=== PATIENT | male | born 1960 | race Caucasian/White ===

== ENCOUNTER 2022-08-24 17:45 | Outpatient (CLI) | payer MEDICAID, SELFPAY | END 2022-08-24 17:46 | disposition home or self-care (01) | LOC: AMB 09-06 20:28 | PROVIDERS: Visit Provider Emergency Medicine Emergency Medical Services | DX: R41.82 Altered mental status, unspecified (principal) | CPT/HCPCS: A0425; A0427 ==

== ENCOUNTER 2022-08-24 18:09 | Inpatient (IN) | payer MEDICAID, SELFPAY ==
[2022-08-24] VITALS (23 sets, daily range): BP systolic 124–173; BP diastolic 70–121; PULSE 87–138; RESP 18–28; TEMP 36.4–37.1; O2SAT 93–99; BMI 23.1
--- NOTE | 2022-08-24 18:20 | CRLHL7_ITS ---
For Patients: As a result of the Century Cures Act, medical imaging exams and procedure reports are released immediately into your electronic medical record. You may view this report before your referring provider. If you have questions, please contact your health care provider. INDICATION: Altered mental status. TECHNIQUE: Head CT without contrast. COMPARISON: None. FINDINGS: CSF spaces: Within normal limits for age. Brain parenchyma and extra-axial spaces: There are nonspecific low attenuation white matter changes consistent with chronic microvascular disease. No sign of mass, hemorrhage, or midline shift. Left posterior limb internal capsule chronic lacunar-type infarct. Skull base and calvarium: Opacification of the left frontal sinus and multiple ethmoid air cells as well as complete opacification of the left maxillary sinus. Mucosal thickening noted in the right maxillary sinus. Partial opacification of the sphenoid sinuses. Otherwise the visualized paranasal sinuses and mastoid air cells demonstrate no acute or significant findings. The visualized orbits are grossly unremarkable. No skull fractures. IMPRESSION: No acute intracranial process identified. Moderate periventricular white matter hypodensities likely related small vessel ischemic changes. Old lacunar type infarct in the left posterior limb of the internal capsule. Please note that all CT scans at this facility use dose modulation, iterative reconstruction, and/or weight-based dosing when appropriate to reduce radiation dose to as low as reasonably achievable. Dictated by Fabio Lara MD @ 08/24/2022 8:12:29 PM (Electronically Signed)
--- NOTE | 2022-08-24 18:25 | ED.GENADULT ---
HPI - General Adult General Chief complaint: Neuro Symptoms/Altered Deficit Stated complaint: Stroke Time Seen by Provider: 08/24/22 18:19 History of Present Illness HPI narrative: This 62-year-old male comes in by ambulance as he was at work and it was noted that he was leaning against a wall and then collapsed. Ambulance arrived and found him uncooperative but had normal vital signs and blood glucose level. There was suspicion that he was having a stroke. He arrives here with normal vital signs in seems slow to respond. He did have an IV placed but he pulled this out. Just before was pulled out he did receive 1 mg of Ativan prior to arrival. He is not complaining of any pain. He continues to be somewhat uncooperative when nurses are attempting to arrange vital signs and place an IV. Related Data Allergies Allergy/AdvReac Type Severity Reaction Status Date / Time No Known Drug Allergies Allergy Verified 08/24/22 19:32 Review of Systems Status of ROS: Reports: unobtainable due to mental status Narrative: Unable to obtain due to mental status. PFSH [facility] Social History Smoking Status: Current every day smoker How often do you have a drink containing alcohol: 4 or more times a week How many standard drinks containing alcohol do you have on a typical day: 10 or more How often do you have six or more drinks on one occasion: Daily or almost daily AUDIT-C Alcohol total score: 12 Exam Narrative: Exam Narrative: Constitutional: Well-developed, well-nourished, no acute distress. HEENT: Normocephalic, atraumatic. Neck: Normal range of motion. Nontender. Supple. Heart: Regular. No murmurs. Normal rate. Intact distal pulses. Lungs: Clear to auscultation. No chest discomfort. No wheezes, rhonchi, or rales. Abdomen: Normal bowel sounds. Nontender. No rebound tenderness. Genitalia: Deferred. Back: No midline tenderness. Normal range of motion. Extremities: Normal range of motion. No injury. Skin: Intact. No rash. Warm. No erythema or pallor. Neurologic: No altered sensation. No weakness. Alert. Slow to respond. He does answer questions. Tongue is midline. No facial asymmetry. Vacuum Tester Cans strength is equal bilaterally. He is able to raise each leg from the bed to touch my hand. Nursing notes and vitals signs are reviewed. Const: Vital Signs, click to edit/add: Vital Signs - 24 hr 08/24/22 18:09 08/24/22 18:40 08/24/22 18:55 Temperature 97.8 F Pulse Rate 116 H Pulse Rate [Right Pulse Oximeter] 138 H Respiratory Rate 28 H Blood Pressure 146/81 H Blood Pressure [Ri ght Upper Arm] 173/121 H Pulse Oximetry 94 95 98 Oxygen Delivery Me thod Room Air 08/24/22 18:56 08/24/22 19:01 08/24/22 19:07 Temperature Pulse Rate 115 H 117 H Pulse Rate [Right Pulse Oximeter] Respiratory Rate Blood Pressure Blood Pressure [Ri ght Upper Arm] Pulse Oximetry 97 99 97 Oxygen Delivery Me thod 08/24/22 19:30 08/24/22 19:31 Temperature Pulse Rate 111 H 106 H Pulse Rate [Right Pulse Oximeter] Respiratory Rate Blood Pressure 156/92 H Blood Pressure [Ri ght Upper Arm] Pulse Oximetry 97 97 Oxygen Delivery Me thod Course Vital Signs Vital signs: Initial Vital Signs Temperature 97.8 F 08/24/22 18:09 Temperature Source Temporal Artery Scan 08/24/22 18:09 Pulse Rate 138 H 08/24/22 18:09 Respiratory Rate 28 H 08/24/22 18:09 Blood Pressure 173/121 H 08/24/22 18:09 Blood Pressure Mean 138 H 08/24/22 18:09 Blood Pressure Position Sitting 08/24/22 18:09 Pulse Oximetry 94 08/24/22 18:09 Oxygen Delivery Method Room Air 08/24/22 18:09 Vital Signs Temperature 97.8 F 08/24/22 18:09 Pulse Rate 138 H 08/24/22 18:09 Respiratory Rate 28 H 08/24/22 18:09 Blood Pressure 173/121 H 08/24/22 18:09 Pulse Oximetry 94 08/24/22 18:09 Oxygen Delivery Method Room Air 08/24/22 18:09 Temperature 97.8 F 08/24/22 18:09 Pulse Rate 106 H 08/24/22 19:31 Respiratory Rate 28 H 08/24/22 18:09 Blood Pressure 156/92 H 08/24/22 19:31 Pulse Oximetry 97 08/24/22 19:31 Oxygen Delivery Method Room Air 08/24/22 18:09 Medical Decision Making MDM Narrative Medical decision making narrative: This patient came in by ambulance because he collapsed. There was suspicion that he might have had a stroke. He arrives here with slow responses but does show normal neurologic exam. Vital signs also are in normal range except for mild tachycardia. He is fidgety and when attempting to establish an IV he was uncooperative. Nurse's eventually had to restrain is arms to place the IV. He did then receive 1 mg of Ativan intravenously and since then has been cooperative and apparently doing better. He does not describe any pain. His and son of arrived and they indicate that he does drink alcohol heavily but they do not report any history of seizure or withdrawal symptoms. His blood alcohol level currently is 0. His lab results returned with potassium at 2.5. The patient did receive 10 mEq of potassium along with some IV fluids. CT scan of his head shows no acute intracranial findings. I did speak with the hospitalist medical education coordinator, Dr. Field, who is agreeable to bring him in overnight for further evaluation and treatment. Lab Data Labs: Lab Results 08/24/22 08/24/22 08/24/22 Range/Units 18:35 18:35 18:45 WBC 7.13 (4.50-11.00) K/uL RBC 4.05 L (4.30-5.90) m/uL Hgb 13.6 (13.5-17.5) gm/dL Hct 39.6 (37.0-53.0) % MCV 98 (80-100) fL MCH 34 (26-34) pg MCHC 34 (32-36) gm/dL RDW Coeff of Nia 12.7 (11.5-15.5) % Plt Count 109 L (140-440) K/uL Neut % (Auto) 76.9 H (42.0-72.0) % Lymph % (Auto) 16.4 L (20-44) % [place] % (Auto) 6.0 (0.0-11.0) % Eos % (Auto) 0.0 (0.0-7.0) % Baso % (Auto) 0.6 (0.0-3.0) % Neut # (Auto) 5.50 (1.7-7.0) K/uL Lymph # (Auto) 1.20 (0.90-2.90) K/uL [place] # (Auto) 0.40 (0.00-0.90) K/UL Eos # (Auto) 0.00 (0.00-0.50) K/uL Baso # (Auto) 0.04 (0.00-0.30) K/uL Sodium 130 L (135-149) mmol/L Potassium 2.5 L* (3.6-5.1) mmol/L Chloride 91 L (96-114) mmol/L Carbon Dioxide 20 (20-32) mmol/L BUN 6 L (7-30) mg/dL Creatinine 0.5 (0.5-1.5) mg/dL Estimated GFR 115 ml/min Glucose 143 H (60-115) mg/dL Calcium 8.4 (8.4-10.6) mg/dL Urine Color Yellow (Yellow) Urine Appearance Clear (Clear) Urine pH 7.0 (5.0-8.5) Ur Specific [place] 1.025 (1.000-1.030) Urine Protein 3+ A (Negative) Urine Glucose (UA) Negative (Negative) Urine Ketones 2+ A (Negative) Urine Blood 2+ A (Negative) Urine Nitrite Negative (Negative) Urine Bilirubin Negative (Negative) Urine Urobilinogen 0.2 (0.2-1.0) Ur Leukocyte Esterase Negative (Negative) Urine RBC 0-2 (0-2) Urine WBC 0-2 (0-5) Ur Squamous Epith Cells None (None-Few) Urine Bacteria None (None) Fine Granular Casts Few A (None) Urine Opiates Screen Negative (Negative) Ur Oxycodone Screen Negative (Negative) Urine Methadone Screen Negative (Negative) Ur Propoxyphene Screen Negative (Negative) Ur Barbiturates Screen Negative (Negative) U Tricyclic Antidepress Negative (Negative) Ur Phencyclidine Scrn Negative (Negative) Ur Amphetamines Screen Negative (Negative) U Methamphetamines Scrn Negative (Negative) U Benzodiazepines Scrn Negative (Negative) Urine Cocaine Screen Negative (Negative) U Marijuana (THC) Screen Negative (Negative) Ur Drug Screen Comment See Note Ethyl Alcohol < 0.01 L Cancelled (0.01-0.03) % POC Troponin I 0.03 (0.01-0.04) ng/ml Imaging Data CT scan - head: Radiologist's impression: No acute intracranial process identified. Moderate periventricular white matter hypodensities likely related small vessel ischemic changes. Discharge Plan Discharge Clinical Impression: Syncope and collapse, Acute hypokalemia Patient Disposition: Admitted As Inpatient Follow Up/Referrals: Provider,Not a Local [Primary Care Provider] -
--- NOTE | 2022-08-24 18:28 | PC.NURSE ---
pt remains disoriented and combative requiring multiple staff to keep him safe, called to room, will place restraints for safety
--- NOTE | 2022-08-24 18:40 | PC.NURSE ---
restraints applied, see assessments
[2022-08-24 18:42] LABS: Basophils Absolute Auto 0.04 K/uL (0.00-0.30); Basophils Percent Auto 0.6 % (0.0-3.0); Hematocrit 39.6 % (37.0-53.0); Hemoglobin* 13.6 gm/dL (13.5-17.5); Immature Granulocytes Abs Auto 0.01 K/uL (0.00-0.30); Immature Granulocytes Pct Auto 0.1 %; Lymphocytes Percent Auto 16.4 % (20-44); Mean Corpuscular HGB Conc 34 gm/dL (32-36); Mean Corpuscular Hemoglobin 34 pg (26-34); Mean Corpuscular Volume 98 fL (80-100); Neutrophils Percent Auto 76.9 % (42.0-72.0); Platelet Count* 109 K/uL (140-440); RDW Coefficient of Variation % 12.7 % (11.5-15.5); Red Blood Count 4.05 m/uL (4.30-5.90); White Blood Count* 7.13 K/uL (4.50-11.00)
[2022-08-24 18:46] LABS: Slide Review Reflex No
[2022-08-24 18:51] LABS: Appearance Urine Clear (Clear); Bilirubin Urine Negative (Negative); Blood Urine 2+ (Negative); Color Urine Yellow (Yellow); Glucose Urine Negative (Negative); Ketones Urine 2+ (Negative); Leukocyte Esterase Urine Negative (Negative); Nitrite Urine Negative (Negative); Protein Urine 3+ (Negative); Specific Gravity Urine 1.025 (1.000-1.030); Urobilinogen Urine 0.2 (0.2-1.0)
[2022-08-24] MEDS: 0.9 % SODIUM CHLORIDE 500 ML 500 ML IV (18:53)
[2022-08-24 18:55] LABS: Chloride* 91 mmol/L (96-114); Sodium* 130 mmol/L (135-149)
[2022-08-24 18:57] LABS: Creatinine* 0.5 mg/dL (0.5-1.5); Estimated Glomerular Filt Rate 115 ml/min
[2022-08-24 18:58] LABS: Amphetamine Screen Urine Negative (Negative); Barbiturate Screen Urine Negative (Negative); Benzodiazepines Screen Urine Negative (Negative); Cannabinoid Screen Urine Negative (Negative); Cocaine Screen Urine Negative (Negative); Methadone Screen Urine Negative (Negative); Methamphetamines Screen Urine Negative (Negative); Opiate Screen Urine Negative (Negative); Oxycodone Screen Urine Negative (Negative); Phencyclidine Screen Urine Negative (Negative); Tricyclic Antidepressant Urine Negative (Negative)
[2022-08-24 18:58] LABS: Blood Urea Nitrogen* 6 mg/dL (7-30); Calcium* 8.4 mg/dL (8.4-10.6); Carbon Dioxide* 20 mmol/L (20-32); Glucose* 143 mg/dL (60-115)
[2022-08-24 19:00] LABS: Fine Granular Casts Urine Few; RBC Urine 0-2 (0-2); WBC Urine 0-2 (0-5)
[2022-08-24 19:01] LABS: Ethanol* < 0.01 % (0.01-0.03); Potassium* 2.5 mmol/L (3.6-5.1)
--- NOTE | 2022-08-24 19:05 | ED.NURSE ---
Critical Potassium lab received and handed to MD: 2.5
[2022-08-24 19:09] LABS: Troponin, Point-of-Care* 0.03 ng/ml (0.01-0.04)
[2022-08-24] MEDS: LORazepam 2 MG/ML inj 1 MG IM (19:09)
[2022-08-24] MEDS: POTASSIUM CHLORIDE 10 MEQ/100 ML PIGGYBACK 100 MEQ IVPB ×2 (19:26→23:19)
--- NOTE | 2022-08-24 19:40 | PC.NURSE ---
restraints removed 1901, pt becoming more directable, CT called to attempt exam
--- NOTE | 2022-08-24 19:55 | ED.NURSE ---
Ct head completed. Returned to room. and son at bedside. Patient able to respond to questions and inconstantly follows commands. Needs frequent redirection.
--- NOTE | 2022-08-24 20:03 | ED.NURSE ---
MD in to discuss plan of care with patient and .
--- NOTE | 2022-08-24 20:31 | ED.NURSE ---
Patient incontinent of urine. Removed jeans and underwear. Placed in a brief. Cleansed abrasions/wounds on right arm. Bacitracin and bandages applied. Patient accepted for admission to med surg.
--- NOTE | 2022-08-24 20:54 | ED.NURSE ---
Hospitalist in to see patient at this time. Patient is resting on the cot.
--- NOTE | 2022-08-24 21:03 | ED.NURSE ---
Report to [facility] on Med Surg. To CCU 1 once hospitalist complete with assessment.
--- NOTE | 2022-08-24 22:12 | P.IMHP_ITS ---
Hospitalist- H&P: HPI History of Present Illness Time Seen by Provider: 20:30 Date Seen: 08/24/22 Chief complaint: Collapsed at work Narrative: [place] is a 62 year old man who reportedly was in his usual state of health until he collapsed this afternoon while at work. Most information that I relate below is obtained by speaking with the patient's and their son, both of whom are present when I see the patient in the emergency department this evening. The patient has intentionally avoided interaction with medical personnel over the years. His physician retired early on during the COVID pandemic roughly 3 years ago. Before his physician retired he rarely ever saw his physician. He has not reestablished relationship with another physician since then. His indicates that the patient suffered a stroke about 10 years ago and for a while was on statin medication, aspirin, and possibly another medicine. When the patient decided to no longer seek medical attention after his physician retired, he quit taking all of his medications. He has not been taking any prescription medications since then. Family does note that he regularly takes [id number] ibuprofen, 4 tabs at a time, 3-4 times daily. 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 Reportedly he did not strike his head. EMS was summoned. According to the EMS report he was uncooperative with the EMS staff. They thought they saw some facial drooping. Found to have normal vital signs and glucose. They placed an IV and attempted to give 1 mg of lorazepam. Patient pulled out the IV possibly right after the lorazepam was given. On arrival here to the emergency department there is no obvious focal motor neurologic deficits. Still remains somewhat uncooperative with the nursing staff here in the hospital. Subsequently fell asleep. I arouse the patient when I assessed him in the emergency department. He has no recall of collapsing while at work. He does not recall any of those events. He does not recall arriving here in the hospital. He denies any pain. Ordinarily drinks alcohol daily. His son estimates that he drinks a half bottle daily of either vodka or dionte. Usually drinks in the evening and night. On weekends he also drinks during the day. As far as the patient's family is aware he has not had alcohol withdrawal symptoms. He has not had alcohol withdrawal seizures or delirium tremens. He did not drink much alcohol this past Wednesday. As far as the family knows he consumed no alcohol whatsoever today. Review of Systems Status of ROS: Reports: 10 or more systems reviewed and unremarkable except as noted in History and below Narrative: Patient tells me presently that he has no new injuries that he is aware of. Denies headache, neck ache, painful extremities or joints, chest or back pain, abdominal pain, pelvic pain. Denies lightheadedness or near-syncope at this time. Denies chest heaviness, pressure, tightness, or pain. Denies nausea or vomiting. Denies palpitations or chest fluttering. Denies cough, shortness of breath, paroxysmal nocturnal dyspnea, orthopnea. Denies recent fevers, rigors, diaphoresis. Denies recent diarrhea or constipation. Denies dysuria, urgency, frequency, hematuria. Denies weight gain or weight loss. Denies edema. Denies claudication. Acknowledges chronic longstanding difficulty with walking. A number of years ago he had a hip pinned. Reportedly it was recommended that he have a total hip arthroplasty at that time but he declined the arthroplasty and excepted the hip pending. Also he reportedly has a bad knee. Has had difficulty walking for number of years. Does take [id number] ibuprofen, 4 tabs 3-4 times daily. Again he does drink alcohol regularly, about a half bottle of vodka or dionte daily. On weekends he might drink a little bit more. This is not new. [facility] Medical History (Updated 08/24/22 @ 23:00 by Adonay Field MD) Tobacco dependence ?F17.200 - Nicotine dependence, unspecified, uncomplicated (ICD-10) Chronic knee pain ?M25.569 - Pain in unspecified knee (ICD-10) ?G89.29 - Other chronic pain (ICD-10) Chronic hip pain ?M25.559 - Pain in unspecified hip (ICD-10) ?G89.29 - Other chronic pain (ICD-10) Unstable gait ?R26.81 - Unsteadiness on feet (ICD-10) History of stroke ?Z86.73 - Personal history of transient ischemic attack (TIA), and cerebral infarction without residual deficits (ICD-10) Alcohol abuse ?F10.10 - Alcohol abuse, uncomplicated (ICD-10) Alcoholism ?F10.20 - Alcohol dependence, uncomplicated (ICD-10) Surgical History (Updated 08/24/22 @ 22:37 by Adonay Field MD) Status post hip surgery ?Z98.890 - Other specified postprocedural states (ICD-10) Social History Smoking Status: Current every day smoker How often do you have a drink containing alcohol: 4 or more times a week How many standard drinks containing alcohol do you have on a typical day: 10 or more How often do you have six or more drinks on one occasion: Daily or almost daily AUDIT-C Alcohol total score: 12 Meds Home Medications and Allergies Home Medication Comments: Vfdh-wwm-[id number] ibuprofen 4 tabs 3-4 times daily Allergies Allergy/AdvReac Type Severity Reaction Status Date / Time No Known Drug Allergies Allergy Verified 08/24/22 19:32 Exam Narrative: Exam Narrative: When I 1st meet him in the emergency department he is sound asleep. Appears thin and cachectic. Peripheral muscle wasting of upper and lower extremities. Skin is remarkable for subcutaneous atrophy with ecchymosis at m ultiple stages of evolution particularly in the extremities. After speaking with his and son who are not sitting next to him for good 1/2 hour I begin speaking with the patient and he easily arouses. When awake it is apparent that he has amnesia of the events that occurred culminating in his arrival here at the hospital. He does not recall arriving at the hospital or being transported to the hospital. Does initially not oriented to situation. After explaining to him the situation he seems to understand. Other than the amnesia, he is oriented to self, not oriented to place, not oriented to time. We do orient him to place and time and seemingly he comprehends. When awake he is picking at blood pressure cuff and finger oximetry probe. Earlier he pulled out his IV. No obvious focal motor neurologic deficits including the face. No icterus or conjunctival injection. Tympanic membranes are normal as are bilateral external auditory canals. Midline nasal septum with normal nasal mucosa. Dry buccal mucosa. Dentition fair repair. Supple neck. Midline trachea. No JVD, hepatojugular reflux, or carotid bruits. Lungs are clear to auscultation without wheezing, rhonchi, or rales. Chest wall excursions are full. No CVA tenderness. No tenderness to palpation over the spine. Heart tones with regular rhythm, normal S1-S2, without murmur, gallop, or rub. PMI is not laterally displaced. Abdomen with active bowel sounds, soft, nontender. Moderately enlarged liver. No rebound or guarding. Extremities without edema. Const: Vital Signs, click to edit/add: Vital Signs - 24 hr 08/24/22 18:09 08/24/22 18:40 08/24/22 18:55 Temperature 97.8 F Pulse Rate 116 H Pulse Rate [Right Pulse Oximeter] 138 H Respiratory Rate 28 H Blood Pressure 146/81 H Blood Pressure [Ri ght Upper Arm] 173/121 H Pulse Oximetry 94 95 98 Oxygen Delivery Me thod Room Air 08/24/22 18:56 08/24/22 19:01 08/24/22 19:07 Temperature Pulse Rate 115 H 117 H Pulse Rate [Right Pulse Oximeter] Respiratory Rate Blood Pressure Blood Pressure [Ri ght Upper Arm] Pulse Oximetry 97 99 97 Oxygen Delivery Me thod 08/24/22 19:30 08/24/22 19:31 08/24/22 19:32 Temperature Pulse Rate 111 H 106 H 104 H Pulse Rate [Right Pulse Oximeter] Respiratory Rate Blood Pressure 156/92 H Blood Pressure [Ri ght Upper Arm] Pulse Oximetry 97 97 98 Oxygen Delivery Me thod 08/24/22 20:00 08/24/22 20:01 08/24/22 20:02 Temperature Pulse Rate 102 H 99 100 Pulse Rate [Right Pulse Oximeter] Respiratory Rate Blood Pressure 153/91 H Blood Pressure [Ri ght Upper Arm] Pulse Oximetry 98 97 97 Oxygen Delivery Me thod Room Air 08/24/22 20:30 08/24/22 20:31 08/24/22 20:32 Temperature Pulse Rate 108 H 108 H 107 H Pulse Rate [Right Pulse Oximeter] Respiratory Rate Blood Pressure 148/95 H Blood Pressure [Ri ght Upper Arm] Pulse Oximetry 97 97 97 Oxygen Delivery Me thod 08/24/22 21:00 08/24/22 21:02 Temperature Pulse Rate 87 105 H Pulse Rate [Right Pulse Oximeter] Respiratory Rate Blood Pressure 133/79 Blood Pressure [Ri ght Upper Arm] Pulse Oximetry 98 98 Oxygen Delivery Me thod Documenting provider has reviewed patient's vital signs: yes Hospitalist - H&P: Result Labs Labs: Short CBC 08/24/22 Range/Units 18:35 WBC 7.13 (4.50-11.00) K/uL Hgb 13.6 (13.5-17.5) gm/dL Hct 39.6 (37.0-53.0) % Plt Count 109 L (140-440) K/uL BMP 08/24/22 18:35 Sodium 130 L Potassium 2.5 L* Chloride 91 L Carbon Dioxide 20 BUN 6 L Creatinine 0.5 Glucose 143 H Calcium 8.4 Urine 08/24/22 Range/Units 18:45 Urine Color Yellow (Yellow) Urine Appearance Clear (Clear) Urine pH 7.0 (5.0-8.5) Ur Specific [place] 1.025 (1.000-1.030) Urine Protein 3+ A (Negative) Urine Glucose (UA) Negative (Negative) ECG Attestation: I personally reviewed and interpreted this ECG as follows: Pacemaker model: Sinus tachycardia. Imaging CT scan - head: Attestation: I have reviewed the pertinent imaging results. Radiologist's impression: IMPRESSION: No acute intracranial process identified. Moderate periventricular white matter hypodensities likely related small vessel ischemic changes. Old lacunar type infarct in the left posterior limb of the internal capsule. Assessment and Plan Assessment and plan (1) Syncope and collapse: Problem comment: Likely patient did not have syncope. Likely patient had a seizure episode with post seizure amnesia. Whether this is related to his prior stroke or related to his alcohol use and withdrawal is not clear at this time. This is a 1st possible seizure. Status: Acute Assessment and Plan: A. Admit to hospital. B. Telemetry, serial ECG and troponins. C. Consider EEG and neurology consultation in outpatient setting. D. Physical therapy and occupational therapy consultation. (2) Acute hypokalemia: Problem comment: His nutritional intake is poor at best. Whether this is acute or chronic is unclear. Highly suspicious of complication from his alcohol consumption. Status: Acute Assessment and Plan: A. IV and oral supplementation. Monitor level. B. Check magnesium level. Supplement magnesium if warranted. C. Nutritional consultation. (3) Hyponatremia: Problem comment: Mild. In totality of his presentation this is highly suspicious of being a complication of his alcohol use. Status: Acute Assessment and Plan: A. Fluid restriction. B. Normal saline IV fluid bolus. (4) Thrombocytopenia: Problem comment: Likely a complication of his chronic alcohol use. Status: Acute Assessment and Plan: A. Tract. (5) Proteinuria: Problem comment: Suspect this is related to hypertension. Status: Acute Assessment and Plan: A. Will need outpatient follow-up. (6) History of stroke: Problem comment: CT scan of the head 08/24/2022 demonstrated: No acute intracranial process identified. Moderate periventricular white matter hypodensities likely related small vessel ischemic changes. Old lacunar type infarct in the left posterior limb of the internal capsule. Status: Acute Assessment and Plan: A. Consider re-initiation of statin. (7) Tobacco dependence: Status: Acute Assessment and Plan: A. For now will make available Nicotrol inhaler as needed. (8) Unstable gait: Problem comment: Chronic. Status: Acute Assessment and Plan: A. Physical therapy and occupational therapy consultations. (9) Alcoholism: Problem comment: I suspect he has complications far more than what we have been able to ascertain thus far. Status: Acute Assessment and Plan: A. CIWA driven alcohol withdrawal protocol. B. Check INR, liver function studies, and will also obtain ultrasound of abdomen. Plan 1. Reviewed impression and above stated plans with patient, , and son. 2. is primary contact in the event patient not able to speak on his own behalf, cell phone [phone]. 3. For now patient has full resuscitation in event of cardiopulmonary demise. 4. Answered patient's and 's and son's questions to their satisfaction. 5. They agreeable to above stated plans and recommendations. did not think she could take her home in his current condition and situation. 6. Venous thromboembolism prophylaxis through mechanical means. 7. Occupational therapy consultation, including for cognitive assessment.
[2022-08-24 22:20] LABS: Lactate* 3.1 mmol/L (0.5-1.9)
[2022-08-24 22:48] LABS: Aspartate Amino Transferase* 148 U/L (12-35); Bilirubin Direct* 0.2 mg/dL (0.0-0.5); Bilirubin Total* 2.6 mg/dL (0.1-1.5); Total Protein* 7.7 g/dL (6.0-8.3)
[2022-08-24 22:49] LABS: Alanine Aminotransferase* 49 U/L (4-50); Alkaline Phosphatase* 96 U/L (40-150)
[2022-08-24 23:00] LABS: Troponin I* 0.01 ng/mL (0.01-0.04)
[2022-08-24 23:04] LABS: Magnesium* 0.9 mg/dL (1.5-2.6)
[2022-08-24 23:20] LABS: INR 0.97 (0.91-1.10); Prothrombin Time 13.4 Seconds
[2022-08-24] MEDS: ENOXAPARIN 30 MG/0.3ML INJ SUBCUT (23:22)
[2022-08-24] MEDS: THIAMINE 100 MG TABLET PO (23:23)
[2022-08-24] MEDS: POTASSIUM CHLORIDE 10 MEQ CAPSULE ER 40 MEQ PO (23:23)
[2022-08-24 23:38] LABS: Vitamin B12* 516 pg/mL (243-894)
[2022-08-24 23:40] LABS: Thyroid Stimulating Hormone* 0.546 uIU/mL (0.270-4.20)
[2022-08-25] VITALS (13 sets, daily range): BP systolic 131–142; BP diastolic 79–91; PULSE 78–95; RESP 14–24; TEMP 36.4–37.2; O2SAT 94–98
[2022-08-25 00:19] LABS: Creatine Kinase* 282 U/L (54-186)
[2022-08-25] MEDS: MAGNESIUM IV 2 GM/50 ML PIGGYBACK IVPB (00:38)
[2022-08-25] MEDS: POTASSIUM CHLORIDE 10 MEQ/100 ML PIGGYBACK 100 MEQ IVPB ×2 (00:43→02:06)
[2022-08-25] MEDS: ATORVASTATIN 10 MG TABLET 20 MG PO (00:44)
[2022-08-25] MEDS: CLOPIDOGREL 75 MG TABLET PO ×2 (00:44→09:48)
[2022-08-25] MEDS: ASPIRIN 81 MG TAB.CHEW 162 MG PO (01:02)
[2022-08-25] MEDS: LORazepam 2 MG/ML inj IVP ×2 (04:12→04:55)
[2022-08-25] MEDS: ACETAMINOPHEN 325 MG TABLET 650 MG PO (04:53)
--- NOTE | 2022-08-25 05:39 | PM.IMPN1 ---
Progress Note: A&P Assessment and plan (1) Alcoholism: Status: Acute Plan E hospitalist collaboration. Nursing noted patient combative, crawling out of bed and had received Ativan in the ED at 1900 Did not require further Ativan until 4 AM and then an additional 2 mg rquired at 445 and again at 545. Vitals remained stable with heart rate 86, respiratory rate 24, blood pressure 141/86 and O2 sat 94% on room air. Patient has since now fallen asleep, and will continue Ativan per protocol, if is not responding no to Ativan and becomes combative again we will plan phenobarbital or consideration Precedex drip. Subjective Date Seen: 08/25/22 Exam Const: Vital Signs, click to edit/add: Vital Signs - 24 hr 08/24/22 18:09 08/24/22 18:40 08/24/22 18:55 Temperature 97.8 F Pulse Rate 116 H Pulse Rate [Pulse Oximeter] Pulse Rate [Right Pulse Oximeter] 138 H Respiratory Rate 28 H Blood Pressure 146/81 H Blood Pressure [Ri ght Arm] Blood Pressure [Ri ght Upper Arm] 173/121 H Pulse Oximetry 94 95 98 Oxygen Delivery Me thod Room Air 08/24/22 18:56 08/24/22 19:01 08/24/22 19:07 Temperature Pulse Rate 115 H 117 H Pulse Rate [Pulse Oximeter] Pulse Rate [Right Pulse Oximeter] Respiratory Rate Blood Pressure Blood Pressure [Ri ght Arm] Blood Pressure [Ri ght Upper Arm] Pulse Oximetry 97 99 97 Oxygen Delivery Me thod 08/24/22 19:30 08/24/22 19:31 08/24/22 19:32 Temperature Pulse Rate 111 H 106 H 104 H Pulse Rate [Pulse Oximeter] Pulse Rate [Right Pulse Oximeter] Respiratory Rate Blood Pressure 156/92 H Blood Pressure [Ri ght Arm] Blood Pressure [Ri ght Upper Arm] Pulse Oximetry 97 97 98 Oxygen Delivery Me thod 08/24/22 20:00 08/24/22 20:01 08/24/22 20:02 Temperature Pulse Rate 102 H 99 100 Pulse Rate [Pulse Oximeter] Pulse Rate [Right Pulse Oximeter] Respiratory Rate Blood Pressure 153/91 H Blood Pressure [Ri ght Arm] Blood Pressure [Ri ght Upper Arm] Pulse Oximetry 98 97 97 Oxygen Delivery Me thod Room Air 08/24/22 20:30 08/24/22 20:31 08/24/22 20:32 Temperature Pulse Rate 108 H 108 H 107 H Pulse Rate [Pulse Oximeter] Pulse Rate [Right Pulse Oximeter] Respiratory Rate Blood Pressure 148/95 H Blood Pressure [Ri ght Arm] Blood Pressure [Ri ght Upper Arm] Pulse Oximetry 97 97 97 Oxygen Delivery Me thod 08/24/22 21:00 08/24/22 21:02 08/24/22 21:28 Temperature 98.8 F Pulse Rate 87 105 H Pulse Rate [Pulse Oximeter] Pulse Rate [Right Pulse Oximeter] Respiratory Rate 18 Blood Pressure 133/79 Blood Pressure [Ri ght Arm] Blood Pressure [Ri ght Upper Arm] Pulse Oximetry 98 98 95 Oxygen Delivery Me thod Room Air 08/24/22 22:54 08/24/22 23:00 08/24/22 23:40 Temperature 98.8 F 98.7 F Pulse Rate Pulse Rate [Pulse Oximeter] 103 H 99 Pulse Rate [Right Pulse Oximeter] Respiratory Rate 18 18 Blood Pressure Blood Pressure [Ri ght Arm] 124/70 137/76 Blood Pressure [Ri ght Upper Arm] Pulse Oximetry 94 95 [facility] 08/25/22 03:34 08/25/22 03:45 08/25/22 04:45 Temperature 97.6 F Pulse Rate Pulse Rate [Pulse Oximeter] 94 94 Pulse Rate [Right Pulse Oximeter] Respiratory Rate 18 20 24 Blood Pressure Blood Pressure [Ri ght Arm] 141/86 H Blood Pressure [Ri ght Upper Arm] Pulse Oximetry 98 95 94 [facility] 08/25/22 05:00 Temperature Pulse Rate Pulse Rate [Pulse Oximeter] 88 Pulse Rate [Right Pulse Oximeter] Respiratory Rate 18 Blood Pressure Blood Pressure [Ri ght Arm] 142/79 H Blood Pressure [Ri ght Upper Arm] Pulse Oximetry 95 Oxygen Delivery Me thod Labs Labs: Laboratory Results - last 24 hr 08/24/22 08/24/22 08/24/22 18:35 18:35 18:45 WBC 7.13 RBC 4.05 L Hgb 13.6 Hct 39.6 MCV 98 MCH 34 MCHC 34 RDW Coeff of Nia 12.7 Plt Count 109 L Neut % (Auto) 76.9 H Lymph % (Auto) 16.4 L [place] % (Auto) 6.0 Eos % (Auto) 0.0 Baso % (Auto) 0.6 Neut # (Auto) 5.50 Lymph # (Auto) 1.20 [place] # (Auto) 0.40 Eos # (Auto) 0.00 Baso # (Auto) 0.04 INR Sodium 130 L Potassium 2.5 L* Chloride 91 L Carbon Dioxide 20 BUN 6 L Creatinine 0.5 Estimated GFR 115 Glucose 143 H Lactate Calcium 8.4 Magnesium Total Bilirubin Direct Bilirubin AST ALT Alkaline Phosphatase Total Creatine Kinase 282 H Troponin I 0.01 Total Protein Albumin Vitamin B12 516 TSH Urine Color Yellow Urine Appearance Clear Urine pH 7.0 Ur Specific [place] 1.025 Urine Protein 3+ A Urine Glucose (UA) Negative Urine Ketones 2+ A Urine Blood 2+ A Urine Nitrite Negative Urine Bilirubin Negative Urine Urobilinogen 0.2 Ur Leukocyte Esterase Negative Urine RBC 0-2 Urine WBC 0-2 Ur Squamous Epith Cells None Urine Bacteria None Fine Granular Casts Few A Urine Opiates Screen Negative Ur Oxycodone Screen Negative Urine Methadone Screen Negative Ur Propoxyphene Screen Negative Ur Barbiturates Screen Negative U Tricyclic Antidepress Negative Ur Phencyclidine Scrn Negative Ur Amphetamines Screen Negative U Methamphetamines Scrn Negative U Benzodiazepines Scrn Negative Urine Cocaine Screen Negative U Marijuana (THC) Screen Negative Ur Drug Screen Comment See Note Ethyl Alcohol < 0.01 L Cancelled Lab Acknowledgement POC Troponin I 0.03 08/24/22 08/24/22 08/24/22 21:41 22:06 22:06 WBC RBC Hgb Hct MCV MCH MCHC RDW Coeff of Nia Plt Count Neut % (Auto) Lymph % (Auto) [place] % (Auto) Eos % (Auto) Baso % (Auto) Neut # (Auto) Lymph # (Auto) [place] # (Auto) Eos # (Auto) Baso # (Auto) INR 0.97 Sodium Potassium Chloride Carbon Dioxide BUN Creatinine Estimated GFR Glucose Lactate 3.1 H Calcium Magnesium 0.9 L* Cancelled Total Bilirubin 2.6 H Direct Bilirubin AST ALT Alkaline Phosphatase Total Creatine Kinase Troponin I Total Protein Albumin Vitamin B12 TSH Urine Color Urine Appearance Urine pH Ur Specific [place] Urine Protein Urine Glucose (UA) Urine Ketones Urine Blood Urine Nitrite Urine Bilirubin Urine Urobilinogen Ur Leukocyte Esterase Urine RBC Urine WBC Ur Squamous Epith Cells Urine Bacteria Fine Granular Casts Urine Opiates Screen Ur Oxycodone Screen Urine Methadone Screen Ur Propoxyphene Screen Ur Barbiturates Screen U Tricyclic Antidepress Ur Phencyclidine Scrn Ur Amphetamines Screen U Methamphetamines Scrn U Benzodiazepines Scrn Urine Cocaine Screen U Marijuana (THC) Screen Ur Drug Screen Comment Ethyl Alcohol Lab Acknowledgement Test Added POC Troponin I 08/24/22 08/24/22 08/24/22 22:06 22:06 22:06 WBC RBC Hgb Hct MCV MCH MCHC RDW Coeff of Nia Plt Count Neut % (Auto) Lymph % (Auto) [place] % (Auto) Eos % (Auto) Baso % (Auto) Neut # (Auto) Lymph # (Auto) [place] # (Auto) Eos # (Auto) Baso # (Auto) INR Sodium Potassium Chloride Carbon Dioxide BUN Creatinine Estimated GFR Glucose Lactate Calcium Magnesium Total Bilirubin Cancelled Direct Bilirubin 0.2 Cancelled AST 148 H Cancelled ALT 49 Alkaline Phosphatase Total Creatine Kinase Troponin I Total Protein Albumin Vitamin B12 TSH Urine Color Urine Appearance Urine pH Ur Specific [place] Urine Protein Urine Glucose (UA) Urine Ketones Urine Blood Urine Nitrite Urine Bilirubin Urine Urobilinogen Ur Leukocyte Esterase Urine RBC Urine WBC Ur Squamous Epith Cells Urine Bacteria Fine Granular Casts Urine Opiates Screen Ur Oxycodone Screen Urine Methadone Screen Ur Propoxyphene Screen Ur Barbiturates Screen U Tricyclic Antidepress Ur Phencyclidine Scrn Ur Amphetamines Screen U Methamphetamines Scrn U Benzodiazepines Scrn Urine Cocaine Screen U Marijuana (THC) Screen Ur Drug Screen Comment Ethyl Alcohol Lab Acknowledgement POC Troponin I 08/24/22 08/24/22 08/24/22 22:06 22:06 22:06 WBC RBC Hgb Hct MCV MCH MCHC RDW Coeff of Nia Plt Count Neut % (Auto) Lymph % (Auto) [place] % (Auto) Eos % (Auto) Baso % (Auto) Neut # (Auto) Lymph # (Auto) [place] # (Auto) Eos # (Auto) Baso # (Auto) INR Sodium Potassium Chloride Carbon Dioxide BUN Creatinine Estimated GFR Glucose Lactate Calcium Magnesium Total Bilirubin Direct Bilirubin AST ALT Cancelled Alkaline Phosphatase 96 Cancelled Total Creatine Kinase Troponin I 0.10 H* Cancelled Total Protein 7.7 Albumin Vitamin B12 TSH Urine Color Urine Appearance Urine pH Ur Specific [place] Urine Protein Urine Glucose (UA) Urine Ketones Urine Blood Urine Nitrite Urine Bilirubin Urine Urobilinogen Ur Leukocyte Esterase Urine RBC Urine WBC Ur Squamous Epith Cells Urine Bacteria Fine Granular Casts Urine Opiates Screen Ur Oxycodone Screen Urine Methadone Screen Ur Propoxyphene Screen Ur Barbiturates Screen U Tricyclic Antidepress Ur Phencyclidine Scrn Ur Amphetamines Screen U Methamphetamines Scrn U Benzodiazepines Scrn Urine Cocaine Screen U Marijuana (THC) Screen Ur Drug Screen Comment Ethyl Alcohol Lab Acknowledgement POC Troponin I 08/24/22 08/24/22 08/24/22 22:06 22:06 23:17 WBC RBC Hgb Hct MCV MCH MCHC RDW Coeff of Nia Plt Count Neut % (Auto) Lymph % (Auto) [place] % (Auto) Eos % (Auto) Baso % (Auto) Neut # (Auto) Lymph # (Auto) [place] # (Auto) Eos # (Auto) Baso # (Auto) INR Sodium Potassium Chloride Carbon Dioxide BUN Creatinine Estimated GFR Glucose Lactate Calcium Magnesium Total Bilirubin Direct Bilirubin AST ALT Alkaline Phosphatase Total Creatine Kinase Troponin I Total Protein Cancelled Albumin 4.0 Cancelled Vitamin B12 TSH 0.546 Urine Color Urine Appearance Urine pH Ur Specific [place] Urine Protein Urine Glucose (UA) Urine Ketones Urine Blood Urine Nitrite Urine Bilirubin Urine Urobilinogen Ur Leukocyte Esterase Urine RBC Urine WBC Ur Squamous Epith Cells Urine Bacteria Fine Granular Casts Urine Opiates Screen Ur Oxycodone Screen Urine Methadone Screen Ur Propoxyphene Screen Ur Barbiturates Screen U Tricyclic Antidepress Ur Phencyclidine Scrn Ur Amphetamines Screen U Methamphetamines Scrn U Benzodiazepines Scrn Urine Cocaine Screen U Marijuana (THC) Screen Ur Drug Screen Comment Ethyl Alcohol Lab Acknowledgement Test Added POC Troponin I 08/24/22 23:40 WBC RBC Hgb Hct MCV MCH MCHC RDW Coeff of Nia Plt Count Neut % (Auto) Lymph % (Auto) [place] % (Auto) Eos % (Auto) Baso % (Auto) Neut # (Auto) Lymph # (Auto) [place] # (Auto) Eos # (Auto) Baso # (Auto) INR Sodium Potassium Chloride Carbon Dioxide BUN Creatinine Estimated GFR Glucose Lactate Calcium Magnesium Total Bilirubin Direct Bilirubin AST ALT Alkaline Phosphatase Total Creatine Kinase Troponin I Total Protein Albumin Vitamin B12 TSH Urine Color Urine Appearance Urine pH Ur Specific [place] Urine Protein Urine Glucose (UA) Urine Ketones Urine Blood Urine Nitrite Urine Bilirubin Urine Urobilinogen Ur Leukocyte Esterase Urine RBC Urine WBC Ur Squamous Epith Cells Urine Bacteria Fine Granular Casts Urine Opiates Screen Ur Oxycodone Screen Urine Methadone Screen Ur Propoxyphene Screen Ur Barbiturates Screen U Tricyclic Antidepress Ur Phencyclidine Scrn Ur Amphetamines Screen U Methamphetamines Scrn U Benzodiazepines Scrn Urine Cocaine Screen U Marijuana (THC) Screen Ur Drug Screen Comment Ethyl Alcohol Lab Acknowledgement Test Added POC Troponin I
[2022-08-25 07:05] LABS: Hematocrit 37.1 % (37.0-53.0); Hemoglobin* 12.9 gm/dL (13.5-17.5); Lactate* 1.1 mmol/L (0.5-1.9); Mean Corpuscular HGB Conc 35 gm/dL (32-36); Mean Corpuscular Hemoglobin 34 pg (26-34); Mean Corpuscular Volume 98 fL (80-100); Platelet Count* 109 K/uL (140-440)
[2022-08-25 07:08] LABS: Slide Review Reflex No
[2022-08-25 07:48] LABS: Chloride* 95 mmol/L (96-114); Potassium* 3.3 mmol/L (3.6-5.1); Sodium* 128 mmol/L (135-149)
[2022-08-25 07:50] LABS: Carbon Dioxide* 26 mmol/L (20-32); Creatine Kinase* 603 U/L (54-186); Creatinine* 0.5 mg/dL (0.5-1.5); Est. Creatinine Clearance* 78.07; Estimated Glomerular Filt Rate 115 ml/min; Lipase* 96 U/L (23-300)
[2022-08-25 07:51] LABS: Blood Urea Nitrogen* 8 mg/dL (7-30); Calcium* 7.9 mg/dL (8.4-10.6); Glucose* 91 mg/dL (60-115); Magnesium* 1.6 mg/dL (1.5-2.6); Phosphorus* 2.7 mg/dL (2.5-4.5)
[2022-08-25] MEDS: OMEPRAZOLE 20 MG CAPSULE DR 40 MG PO (08:03)
[2022-08-25 08:04] LABS: Troponin I* 0.27 ng/mL (0.01-0.04)
--- NOTE | 2022-08-25 08:11 | PC.NURSE ---
Shift Summary? CCU 1 G.D. 62 Collapse at work, EtOH use? Pt arrived fatigued and combative. No longer on restraints. No aggression but very resistive to cares and exam. Pulling off o2 monitor continuously. Pt only slept for about an hour. Dozing for 5-10 minutes then waking anxious and restless. According to family drinks 1L q3 days. CIWAs 3-11 overnight. Given Ativan 2mg x2. Paged lashae for pheno but it was added once shift ended by hospitalist. Some tachycardia and elevated BPs. Respirations 16-24. On room air sating well. Labile temperature, pulling covers off and on. No perspiration. No tremors. Did not appear to have any visual or auditory disturbances. No nausea/vomiting. Had headache and ?hurt all over?, given Tylenol.?Voiding in urinal with some urgency incontinence in brief. Has not been OOB. 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 Oriented to self but not to place or situation. at bedside and son shweta was here. K replaced IV and PO. Mg replaced. IV to R LAC.?Somewhat [place]. Healing abrasion to top of L foot. ANA stockings in place. Tele in place with some accelerated junctional rhythm. EKG done with possible NSTEMI
[2022-08-25] MEDS: PHENobarbitaL 260 MG in 0.9 % SODIUM CHLORIDE 100 ml 100 ML 208 MG IVPB (08:19)
[2022-08-25] MEDS: 0.9 % SODIUM CHLORIDE 250 ml IV (08:20)
[2022-08-25] MEDS: IBUPROFEN 400 MG TABLET PO ×3 (08:21→17:48)
--- NOTE | 2022-08-25 09:12 | NUTR.NU ---
RDN with MD consult for cachexia and alcoholism. Patient not appropriate to visit at this time per IDT meeting. RDN will visit with patient as appropriate at a later date.
--- NOTE | 2022-08-25 09:41 | REH.PT ---
evaluation on hold d/t withdrawal
[2022-08-25] MEDS: METOPROLOL TARTRATE 25 MG TABLET 12.5 MG PO (09:48)
[2022-08-25] MEDS: ASPIRIN 81 MG TABLET EC PO (09:48)
[2022-08-25] MEDS: LORazepam 1 MG TABLET PO ×3 (09:48→12:56)
[2022-08-25] MEDS: FOLIC ACID 1 MG TABLET PO (09:48)
[2022-08-25] MEDS: MULTIVITAMIN/MINERALS 1 TABLET 1 TAB PO (09:49)
[2022-08-25] MEDS: SODIUM CHLORIDE 0.9 % (FLUSH) 10 ML SYRINGE 5 ML IVF ×2 (09:51→11:12)
--- NOTE | 2022-08-25 10:41 | P.IMPN_ITS ---
Progress Note: A&P Assessment and plan (1) Alcoholism: Problem details: - + withdrawal. Per family, last drink likely 08/23 in the afternoon - ativan initiated 08/24, Phenobarbital initiated 08/25 - continue to follow CIWA scores Status: Acute (2) NSTEMI (non-ST elevated myocardial infarction): Problem details: - troponin peaked at 0.28, TTE ordered for 08/25 Status: Acute (3) History of stroke: Problem details: - CT head 08/24/22: No acute abnormalities, moderate periventricular white matter hypodensities likely small vessel ischemic changes, old lacunar type infarct in the left posterior limb of the internal capsule. Status: Acute (4) Thrombocytopenia: Problem details: - likely a complication of his chronic alcohol use Status: Acute (5) Hyponatremia: Problem details: - Mild. In totality of his presentation this is highly suspicious of being a complication of his alcohol use Status: Acute (6) Acute hypokalemia: Problem details: - His nutritional intake is poor at best, may be acute or chronic. Highly suspicious of complication from his alcohol consumption - replace in IVFs, continue to follow Status: Acute (7) Syncope and collapse: Problem details: - ddx includes seizure episode with post seizure amnesia, possibly related to his prior CVA, NSTEMI or ETOH use/withdrawal - follow on telemetry Status: Acute Plan - SCDs for prophylaxis (defer lovenox given thrombocytopenia) - continue to follow CIWA scores and treat withdrawal symptoms - updated at bedside, questions answered Subjective Date Seen: 08/25/22 Interval history: Aung was agitated overnight, requiring large doses of Ativan. He denies chest pain this morning. Exam Narrative: Exam Narrative: GEN: Laying in bed, intermittently agitated. Tries to get up multiple times during my visit CV: RRR, No concerning murmurs, exam difficult R: LCTA bilaterally without concerning wheezing, air movement adequate Ext: Moving all extremities spontaneously Skin: Scattered bruising of extremities Psych: Alcohol withdrawal Const: Vital Signs, click to edit/add: Vital Signs - 24 hr 08/24/22 18:09 08/24/22 18:40 08/24/22 18:55 Temperature 97.8 F Pulse Rate 116 H Pulse Rate [Pulse Oximeter] Pulse Rate [Right Pulse Oximeter] 138 H Respiratory Rate 28 H Blood Pressure 146/81 H Blood Pressure [Le ft Arm] Blood Pressure [Ri ght Arm] Blood Pressure [Ri ght Upper Arm] 173/121 H Pulse Oximetry 94 95 98 Oxygen Delivery Me thod Room Air 08/24/22 18:56 08/24/22 19:01 08/24/22 19:07 Temperature Pulse Rate 115 H 117 H Pulse Rate [Pulse Oximeter] Pulse Rate [Right Pulse Oximeter] Respiratory Rate Blood Pressure Blood Pressure [Le ft Arm] Blood Pressure [Ri ght Arm] Blood Pressure [Ri ght Upper Arm] Pulse Oximetry 97 99 97 Oxygen Delivery Me thod 08/24/22 19:30 08/24/22 19:31 08/24/22 19:32 Temperature Pulse Rate 111 H 106 H 104 H Pulse Rate [Pulse Oximeter] Pulse Rate [Right Pulse Oximeter] Respiratory Rate Blood Pressure 156/92 H Blood Pressure [Le ft Arm] Blood Pressure [Ri ght Arm] Blood Pressure [Ri ght Upper Arm] Pulse Oximetry 97 97 98 Oxygen Delivery Me thod 08/24/22 20:00 08/24/22 20:01 08/24/22 20:02 Temperature Pulse Rate 102 H 99 100 Pulse Rate [Pulse Oximeter] Pulse Rate [Right Pulse Oximeter] Respiratory Rate Blood Pressure 153/91 H Blood Pressure [Le ft Arm] Blood Pressure [Ri ght Arm] Blood Pressure [Ri ght Upper Arm] Pulse Oximetry 98 97 97 Oxygen Delivery Me thod Room Air 08/24/22 20:30 08/24/22 20:31 08/24/22 20:32 Temperature Pulse Rate 108 H 108 H 107 H Pulse Rate [Pulse Oximeter] Pulse Rate [Right Pulse Oximeter] Respiratory Rate Blood Pressure 148/95 H Blood Pressure [Le ft Arm] Blood Pressure [Ri ght Arm] Blood Pressure [Ri ght Upper Arm] Pulse Oximetry 97 97 97 Oxygen Delivery Me thod 08/24/22 21:00 08/24/22 21:02 08/24/22 21:15 Temperature 98.8 F Pulse Rate 87 105 H Pulse Rate [Pulse Oximeter] 110 H Pulse Rate [Right Pulse Oximeter] Respiratory Rate 18 Blood Pressure 133/79 Blood Pressure [Le ft Arm] Blood Pressure [Ri ght Arm] 146/85 H Blood Pressure [Ri ght Upper Arm] Pulse Oximetry 98 98 95 Oxygen Delivery Me thod Room Air 08/24/22 21:28 08/24/22 22:33 08/24/22 22:33 Temperature 98.8 F 97.6 F Pulse Rate Pulse Rate [Pulse Oximeter] 88 Pulse Rate [Right Pulse Oximeter] Respiratory Rate 18 18 18 Blood Pressure Blood Pressure [Le ft Arm] Blood Pressure [Ri ght Arm] 142/79 H Blood Pressure [Ri ght Upper Arm] Pulse Oximetry 95 95 95 Oxygen Delivery Me thod Room Air Room Air Room Air 08/24/22 22:54 08/24/22 23:00 08/24/22 23:00 Temperature 98.8 F Pulse Rate Pulse Rate [Pulse Oximeter] 103 H 88 Pulse Rate [Right Pulse Oximeter] Respiratory Rate 18 18 Blood Pressure Blood Pressure [Le ft Arm] Blood Pressure [Ri ght Arm] 124/70 Blood Pressure [Ri ght Upper Arm] Pulse Oximetry 94 95 Oxygen Delivery Me thod Room Air 08/24/22 23:40 08/25/22 00:24 08/25/22 03:34 Temperature 98.7 F 97.6 F Pulse Rate 92 Pulse Rate [Pulse Oximeter] 99 94 Pulse Rate [Right Pulse Oximeter] Respiratory Rate 18 18 Blood Pressure Blood Pressure [Le ft Arm] Blood Pressure [Ri ght Arm] 137/76 141/86 H Blood Pressure [Ri ght Upper Arm] Pulse Oximetry 93 98 Oxygen Delivery Me thod Room Air Room Air 08/25/22 03:45 08/25/22 04:45 08/25/22 05:00 Temperature Pulse Rate Pulse Rate [Pulse Oximeter] 94 88 Pulse Rate [Right Pulse Oximeter] Respiratory Rate 20 24 18 Blood Pressure Blood Pressure [Le ft Arm] Blood Pressure [Ri ght Arm] 142/79 H Blood Pressure [Ri ght Upper Arm] Pulse Oximetry 95 94 95 Oxygen Delivery Me thod Room Air 08/25/22 06:00 08/25/22 07:54 08/25/22 07:54 Temperature 98.5 F 98.5 F Pulse Rate Pulse Rate [Pulse Oximeter] 88 95 95 Pulse Rate [Right Pulse Oximeter] Respiratory Rate 16 16 16 Blood Pressure Blood Pressure [Le ft Arm] 134/85 134/85 Blood Pressure [Ri ght Arm] Blood Pressure [Ri ght Upper Arm] Pulse Oximetry 94 97 97 Oxygen Delivery Me thod Room Air Room Air Room Air 08/25/22 07:54 08/25/22 07:54 Temperature Pulse Rate Pulse Rate [Pulse Oximeter] 95 Pulse Rate [Right Pulse Oximeter] Respiratory Rate 16 16 Blood Pressure Blood Pressure [Le ft Arm] Blood Pressure [Ri ght Arm] Blood Pressure [Ri ght Upper Arm] Pulse Oximetry 97 Oxygen Delivery Me thod Room Air Labs Labs: Laboratory Results - last 24 hr 08/24/22 08/24/22 08/24/22 18:35 18:35 18:45 WBC 7.13 RBC 4.05 L Hgb 13.6 Hct 39.6 MCV 98 MCH 34 MCHC 34 RDW Coeff of Nia 12.7 Plt Count 109 L Neut % (Auto) 76.9 H Lymph % (Auto) 16.4 L [place] % (Auto) 6.0 Eos % (Auto) 0.0 Baso % (Auto) 0.6 Neut # (Auto) 5.50 Lymph # (Auto) 1.20 [place] # (Auto) 0.40 Eos # (Auto) 0.00 Baso # (Auto) 0.04 INR Sodium 130 L Potassium 2.5 L* Chloride 91 L Carbon Dioxide 20 BUN 6 L Creatinine 0.5 Estimated Creat Clear Estimated GFR 115 Glucose 143 H Lactate Calcium 8.4 Phosphorus Magnesium Total Bilirubin Direct Bilirubin AST ALT Alkaline Phosphatase Total Creatine Kinase 282 H Troponin I 0.01 Total Protein Albumin Lipase Vitamin B12 516 TSH Urine Color Yellow Urine Appearance Clear Urine pH 7.0 Ur Specific [place] 1.025 Urine Protein 3+ A Urine Glucose (UA) Negative Urine Ketones 2+ A Urine Blood 2+ A Urine Nitrite Negative Urine Bilirubin Negative Urine Urobilinogen 0.2 Ur Leukocyte Esterase Negative Urine RBC 0-2 Urine WBC 0-2 Ur Squamous Epith Cells None Urine Bacteria None Fine Granular Casts Few A Urine Opiates Screen Negative Ur Oxycodone Screen Negative Urine Methadone Screen Negative Ur Propoxyphene Screen Negative Ur Barbiturates Screen Negative U Tricyclic Antidepress Negative Ur Phencyclidine Scrn Negative Ur Amphetamines Screen Negative U Methamphetamines Scrn Negative U Benzodiazepines Scrn Negative Urine Cocaine Screen Negative U Marijuana (THC) Screen Negative Ur Drug Screen Comment See Note Ethyl Alcohol < 0.01 L Cancelled Lab Acknowledgement POC Troponin I 0.03 08/24/22 08/24/22 08/24/22 21:41 22:06 22:06 WBC RBC Hgb Hct MCV MCH MCHC RDW Coeff of Nia Plt Count Neut % (Auto) Lymph % (Auto) [place] % (Auto) Eos % (Auto) Baso % (Auto) Neut # (Auto) Lymph # (Auto) [place] # (Auto) Eos # (Auto) Baso # (Auto) INR 0.97 Sodium Potassium Chloride Carbon Dioxide BUN Creatinine Estimated Creat Clear Estimated GFR Glucose Lactate 3.1 H Calcium Phosphorus Magnesium 0.9 L* Cancelled Total Bilirubin 2.6 H Direct Bilirubin AST ALT Alkaline Phosphatase Total Creatine Kinase Troponin I Total Protein Albumin Lipase Vitamin B12 TSH Urine Color Urine Appearance Urine pH Ur Specific [place] Urine Protein Urine Glucose (UA) Urine Ketones Urine Blood Urine Nitrite Urine Bilirubin Urine Urobilinogen Ur Leukocyte Esterase Urine RBC Urine WBC Ur Squamous Epith Cells Urine Bacteria Fine Granular Casts Urine Opiates Screen Ur Oxycodone Screen Urine Methadone Screen Ur Propoxyphene Screen Ur Barbiturates Screen U Tricyclic Antidepress Ur Phencyclidine Scrn Ur Amphetamines Screen U Methamphetamines Scrn U Benzodiazepines Scrn Urine Cocaine Screen U Marijuana (THC) Screen Ur Drug Screen Comment Ethyl Alcohol Lab Acknowledgement Test Added POC Troponin I 08/24/22 08/24/22 08/24/22 22:06 22:06 22:06 WBC RBC Hgb Hct MCV MCH MCHC RDW Coeff of Nia Plt Count Neut % (Auto) Lymph % (Auto) [place] % (Auto) Eos % (Auto) Baso % (Auto) Neut # (Auto) Lymph # (Auto) [place] # (Auto) Eos # (Auto) Baso # (Auto) INR Sodium Potassium Chloride Carbon Dioxide BUN Creatinine Estimated Creat Clear Estimated GFR Glucose Lactate Calcium Phosphorus Magnesium Total Bilirubin Cancelled Direct Bilirubin 0.2 Cancelled AST 148 H Cancelled ALT 49 Alkaline Phosphatase Total Creatine Kinase Troponin I Total Protein Albumin Lipase Vitamin B12 TSH Urine Color Urine Appearance Urine pH Ur Specific [place] Urine Protein Urine Glucose (UA) Urine Ketones Urine Blood Urine Nitrite Urine Bilirubin Urine Urobilinogen Ur Leukocyte Esterase Urine RBC Urine WBC Ur Squamous Epith Cells Urine Bacteria Fine Granular Casts Urine Opiates Screen Ur Oxycodone Screen Urine Methadone Screen Ur Propoxyphene Screen Ur Barbiturates Screen U Tricyclic Antidepress Ur Phencyclidine Scrn Ur Amphetamines Screen U Methamphetamines Scrn U Benzodiazepines Scrn Urine Cocaine Screen U Marijuana (THC) Screen Ur Drug Screen Comment Ethyl Alcohol Lab Acknowledgement POC Troponin I 08/24/22 08/24/22 08/24/22 22:06 22:06 22:06 WBC RBC Hgb Hct MCV MCH MCHC RDW Coeff of Nia Plt Count Neut % (Auto) Lymph % (Auto) [place] % (Auto) Eos % (Auto) Baso % (Auto) Neut # (Auto) Lymph # (Auto) [place] # (Auto) Eos # (Auto) Baso # (Auto) INR Sodium Potassium Chloride Carbon Dioxide BUN Creatinine Estimated Creat Clear Estimated GFR Glucose Lactate Calcium Phosphorus Magnesium Total Bilirubin Direct Bilirubin AST ALT Cancelled Alkaline Phosphatase 96 Cancelled Total Creatine Kinase Troponin I 0.10 H* Cancelled Total Protein 7.7 Albumin Lipase Vitamin B12 TSH Urine Color Urine Appearance Urine pH Ur Specific [place] Urine Protein Urine Glucose (UA) Urine Ketones Urine Blood Urine Nitrite Urine Bilirubin Urine Urobilinogen Ur Leukocyte Esterase Urine RBC Urine WBC Ur Squamous Epith Cells Urine Bacteria Fine Granular Casts Urine Opiates Screen Ur Oxycodone Screen Urine Methadone Screen Ur Propoxyphene Screen Ur Barbiturates Screen U Tricyclic Antidepress Ur Phencyclidine Scrn Ur Amphetamines Screen U Methamphetamines Scrn U Benzodiazepines Scrn Urine Cocaine Screen U Marijuana (THC) Screen Ur Drug Screen Comment Ethyl Alcohol Lab Acknowledgement POC Troponin I 08/24/22 08/24/22 08/24/22 22:06 22:06 23:17 WBC RBC Hgb Hct MCV MCH MCHC RDW Coeff of Nia Plt Count Neut % (Auto) Lymph % (Auto) [place] % (Auto) Eos % (Auto) Baso % (Auto) Neut # (Auto) Lymph # (Auto) [place] # (Auto) Eos # (Auto) Baso # (Auto) INR Sodium Potassium Chloride Carbon Dioxide BUN Creatinine Estimated Creat Clear Estimated GFR Glucose Lactate Calcium Phosphorus Magnesium Total Bilirubin Direct Bilirubin AST ALT Alkaline Phosphatase Total Creatine Kinase Troponin I Total Protein Cancelled Albumin 4.0 Cancelled Lipase Vitamin B12 TSH 0.546 Urine Color Urine Appearance Urine pH Ur Specific [place] Urine Protein Urine Glucose (UA) Urine Ketones Urine Blood Urine Nitrite Urine Bilirubin Urine Urobilinogen Ur Leukocyte Esterase Urine RBC Urine WBC Ur Squamous Epith Cells Urine Bacteria Fine Granular Casts Urine Opiates Screen Ur Oxycodone Screen Urine Methadone Screen Ur Propoxyphene Screen Ur Barbiturates Screen U Tricyclic Antidepress Ur Phencyclidine Scrn Ur Amphetamines Screen U Methamphetamines Scrn U Benzodiazepines Scrn Urine Cocaine Screen U Marijuana (THC) Screen Ur Drug Screen Comment Ethyl Alcohol Lab Acknowledgement Test Added POC Troponin I 08/24/22 08/25/22 23:40 06:38 WBC 5.00 RBC 3.80 L Hgb 12.9 L Hct 37.1 MCV 98 MCH 34 MCHC 35 RDW Coeff of Nia Plt Count 109 L Neut % (Auto) Lymph % (Auto) [place] % (Auto) Eos % (Auto) Baso % (Auto) Neut # (Auto) Lymph # (Auto) [place] # (Auto) Eos # (Auto) Baso # (Auto) INR Sodium 128 L Potassium 3.3 L Chloride 95 L Carbon Dioxide 26 BUN 8 Creatinine 0.5 Estimated Creat Clear 78.07 Estimated GFR 115 Glucose 91 Lactate 1.1 Calcium 7.9 L Phosphorus 2.7 Magnesium 1.6 Total Bilirubin Direct Bilirubin AST ALT Alkaline Phosphatase Total Creatine Kinase 603 H Troponin I 0.27 H* Total Protein Albumin Lipase 96 Vitamin B12 TSH Urine Color Urine Appearance Urine pH Ur Specific [place] Urine Protein Urine Glucose (UA) Urine Ketones Urine Blood Urine Nitrite Urine Bilirubin Urine Urobilinogen Ur Leukocyte Esterase Urine RBC Urine WBC Ur Squamous Epith Cells Urine Bacteria Fine Granular Casts Urine Opiates Screen Ur Oxycodone Screen Urine Methadone Screen Ur Propoxyphene Screen Ur Barbiturates Screen U Tricyclic Antidepress Ur Phencyclidine Scrn Ur Amphetamines Screen U Methamphetamines Scrn U Benzodiazepines Scrn Urine Cocaine Screen U Marijuana (THC) Screen Ur Drug Screen Comment Ethyl Alcohol Lab Acknowledgement Test Added POC Troponin I
--- NOTE | 2022-08-25 11:24 | REH.OT ---
Orders received for OT evaluate and treat. Evaluation on hold d/t withdrawal.
[2022-08-25] MEDS: 0.9 % SODIUM CH + KCL 20 mEq/L 1,000 ML 125 ML IV (12:11)
[2022-08-25] MEDS: PHENobarbitaL 130 MG in 0.9 % SODIUM CHLORIDE 100 ml 100 ML 204 MG IVPB ×2 (13:07→17:20)
[2022-08-25] MEDS: POTASSIUM BICARB 25 MEQ EFFERVESCENT TAB PO (17:48)
--- NOTE | 2022-08-25 18:30 | PC.NURSE ---
End of Shift: Patient restless and fidgety on and off. Patient was only verbally aggressive once. Patient oriented to self and , nothing else. Patient is vitally stable, lungs clear, BS WNL, IV running sodium chloride with KCL at 125. Patient given a total of 8mg of Ativan this shift. Patient ate lunch when he was more awake and some bites of dinner. Patient struggles with sitting still but is redirectable. Patient is incontinent. Echo was perfomed with policy writer sales holding on to patient's arm.
[2022-08-25] MEDS: PHENobarbitaL 130 MG in 0.9 % SODIUM CHLORIDE 100 ml 100 ML 100 MG IVPB (20:31)
[2022-08-25] MEDS: ENOXAPARIN 30 MG/0.3ML INJ SUBCUT (23:02)
--- NOTE | 2022-08-25 23:04 | PC.NURSE ---
19-23: Pt resting in bed all shift, occasionally restless which relieved with t&r and urination, hasn't needed ativan prn, ciwas mild, pt has been mostly lethargic, vss on ra, airway patent.
[2022-08-26] VITALS (14 sets, daily range): BP systolic 121–148; BP diastolic 76–103; PULSE 73–100; RESP 16–22; TEMP 35.3–36.9; O2SAT 96–100; BMI 23.1
[2022-08-26] MEDS: 0.9 % SODIUM CH + KCL 20 mEq/L 1,000 ML 125 ML IV ×2 (00:32→10:14)
[2022-08-26] MEDS: LORazepam 2 MG/ML inj IVP ×4 (00:39→13:03)
[2022-08-26] MEDS: PHENobarbitaL 130 MG in 0.9 % SODIUM CHLORIDE 100 ml 100 ML 204 MG IVPB ×4 (01:01→12:58)
[2022-08-26] MEDS: SODIUM CHLORIDE 0.9 % (FLUSH) 10 ML SYRINGE 5 ML IVF (06:05)
--- NOTE | 2022-08-26 07:34 | PC.NURSE ---
END OF SHIFT NOTE: PT SPORADICALLY WILL RESPOND TO NAME. PT UNABLE TO STATE NAME OR . PT RAMBLING. PT UNABLE TO REPORT CP, SOB, N/V. PT ON BEDREST. PT AGITATED AND RESTLESS THRASHING ELBOWS AROUND, REMOVING PULSE OX, TELE, GOWN. REPLACED PULSE OX AND TELE SEVERAL TIMES. PT IS NONCOMPLIANT, TELE LEFT OFF @0500. CIWA'S SCORED 15; ATIVAN GIVEN X3 NOC WITH SCHEDULED X2 PHENOBARBITAL. VSS ON RA; AFEBRILE. BED ALARM ON AND CALL LIGHT WITHIN PT?S REACH. - BRIAN SPENT NIGHT AT PT'S BEDSIDE. SCAB TO TOP OF LEFT FOOT DEVAUGHN WITH BRUISING TO TOP OF FT. ?
[2022-08-26 08:03] LABS: Basophils Absolute Auto 0.06 K/uL (0.00-0.30); Eosinophils Absolute Auto 0.08 K/uL (0.00-0.50); Eosinophils Percent Auto 1.4 % (0.0-7.0); Hematocrit 37.1 % (37.0-53.0); Hemoglobin* 12.6 gm/dL (13.5-17.5); Immature Granulocytes Abs Auto 0.01 K/uL (0.00-0.30); Immature Granulocytes Pct Auto 0.2 %; Lymphocytes Absolute Auto 1.38 K/uL (0.90-2.90); Lymphocytes Percent Auto 24.1 % (20-44); Mean Corpuscular HGB Conc 34 gm/dL (32-36); Mean Corpuscular Hemoglobin 34 pg (26-34); Mean Corpuscular Volume 99 fL (80-100); Monocytes Percent Auto 8.2 % (0.0-11.0); Neutrophils Absolute Auto 3.73 K/uL (1.7-7.0); Neutrophils Percent Auto 65.1 % (42.0-72.0); Platelet Count* 96 K/uL (140-440); RDW Coefficient of Variation % 12.7 % (11.5-15.5); Red Blood Count 3.75 m/uL (4.30-5.90); White Blood Count* 5.73 K/uL (4.50-11.00)
[2022-08-26 08:04] LABS: Ionized Calcium* 1.02 mmol/L (1.11-1.30)
[2022-08-26 08:07] LABS: Slide Review Reflex No
[2022-08-26 08:31] LABS: Chloride* 100 mmol/L (96-114)
[2022-08-26 08:32] LABS: Potassium* 3.2 mmol/L (3.6-5.1); Sodium* 134 mmol/L (135-149)
[2022-08-26 08:34] LABS: Albumin* 3.3 g/dL (3.3-5.0); Carbon Dioxide* 24 mmol/L (20-32); Creatinine* 0.4 mg/dL (0.5-1.5); Est. Creatinine Clearance* 78.07; Estimated Glomerular Filt Rate 123 ml/min
[2022-08-26 08:35] LABS: Blood Urea Nitrogen* 7 mg/dL (7-30); Calcium* 7.8 mg/dL (8.4-10.6); Glucose* 76 mg/dL (60-115); Magnesium* 1.2 mg/dL (1.5-2.6)
[2022-08-26 08:37] LABS: Alanine Aminotransferase* 37 U/L (4-50); Alkaline Phosphatase* 70 U/L (40-150); Aspartate Amino Transferase* 85 U/L (12-35); Bilirubin Direct* 0.5 mg/dL (0.0-0.5); Bilirubin Total* 1.9 mg/dL (0.1-1.5); Total Protein* 6.7 g/dL (6.0-8.3)
[2022-08-26] MEDS: POTASSIUM BICARB 25 MEQ EFFERVESCENT TAB PO ×2 (08:41→16:01)
[2022-08-26] MEDS: ASPIRIN 81 MG TABLET EC PO (08:42)
[2022-08-26] MEDS: FOLIC ACID 1 MG TABLET PO (08:42)
[2022-08-26] MEDS: IBUPROFEN 400 MG TABLET PO ×2 (08:42→12:58)
[2022-08-26] MEDS: MULTIVITAMIN/MINERALS 1 TABLET 1 TAB PO (08:42)
[2022-08-26] MEDS: CLOPIDOGREL 75 MG TABLET PO (08:43)
[2022-08-26] MEDS: LORazepam 1 MG TABLET PO (08:43)
[2022-08-26] MEDS: METOPROLOL TARTRATE 25 MG TABLET 12.5 MG PO ×2 (08:43→21:00)
--- NOTE | 2022-08-26 08:48 | REH.OT ---
OT/PT continues to be on hold due to patient's medical status. He will be evaluated when he is medically stable.
[2022-08-26 08:49] LABS: Troponin I* 0.07 ng/mL (0.01-0.04)
--- NOTE | 2022-08-26 13:54 | PC.NURSE ---
End of Shift: pt has been restless and confused. he is alert to self. was here and she is loving are caring. he is restive with staff when doing cares or vitals. Ciwas done he is getting Ativan and phenobarbital for withdrawals. IV has been patent. his feed him breakfast. staff helped him with lunch. he ate 25 %. he is incontinent of urine. he is not able to use call light. alarms are on. he is a fall risk. tried to do am cares and po care.
--- NOTE | 2022-08-26 14:43 | PM.IMPN1 ---
Progress Note: A&P Assessment and plan (1) Alcoholism: Problem details: - + withdrawal. Per family, last drink likely 08/23 in the afternoon - sequela including thrombocytopenia, hypokalemia, hyponatremia, hypomagnesemia, hypocalcemia - Ativan initiated 08/24, Phenobarbital initiated 08/25 - continue to follow CIWA scores Status: Acute (2) NSTEMI (non-ST elevated myocardial infarction): Problem details: - troponin peaked at 0.28, TTE 08/25 with results below: - reviewed findings with Dr. Gonzalez of Cardiology; given patient's asymptomatic state and down trending troponin, no need to initiate urgent transfer at this time, will medically manage: BB, statin, ASA, Entresto Final Impressions: 1. Normal LV size, mildly increased wall thickness, moderately reduced global systolic function with an estimated EF of 30 - 35%. 2. Multiple segmental abnormalities exist. See findings. 3. Right ventricular cavity size is normal, global systolic RV function is normal. 4. The aortic valve is trileaflet and sclerotic, no stenosis and no regurgitation. 5. The ascending aorta is dilated with a maximal diameter of 3.9 cm. 6. Unable to estimate RVSP. Chamber Sizes and Function Normal left ventricular size, mildly increased wall thickness, moderately reduced global systolic function with an estimated EF of 30 - 35%. Left atrial size is normal. Right ventricular cavity size is normal, global systolic RV function is normal. The right atrium is normal. The pulmonary artery is of normal size and origin. The sinus of Valsalva is normal sized. The ascending aorta is dilated. The apical septum segment is akinetic. The inferior septum, entire inferior wall, mid anterior septum segment, mid posterior segment, apical lateral segment, and apical anterior segment are hypokinetic. All remaining scored segments are normal. Status: Acute (3) History of stroke: Problem details: - CT head 08/24/22: No acute abnormalities, moderate periventricular white matter hypodensities likely small vessel ischemic changes, old lacunar type infarct in the left posterior limb of the internal capsule. Status: Acute (4) Syncope and collapse: Problem details: - ddx includes seizure episode with post seizure amnesia, possibly related to his prior CVA, NSTEMI or ETOH use/withdrawal - follow on telemetry Status: Acute Plan - per above - updated at bedside, questions answered - plan to discharge home with and close PCP/Cardiology followup, in addition to ETOH cessation, when medically stable Subjective Date Seen: 08/26/22 Interval history: Aung continues to have symptoms of withdrawal, managed with Phenobarbital and prn Ativan. When awake, denies chest pain. Exam Narrative: Exam Narrative: GEN: Sleeping in bed, protecting airway CV: RRR, No concerning murmurs R: No wheezing, no tachypnea, air movement adequate Ext: wwp, no concerning edema Skin: Scattered bruising and abrasions on extremities in various stages of healing, no evidence of cellulitis Const: Vital Signs, click to edit/add: Vital Signs - 24 hr 08/25/22 15:00 08/25/22 15:00 08/25/22 19:00 Temperature 98.9 F 98 F Pulse Rate Pulse Rate [Pulse Oximeter] 89 78 Respiratory Rate 14 18 Blood Pressure [Le ft Arm] 131/81 131/81 Pulse Oximetry 95 97 [facility] Room [facility] 08/25/22 20:01 08/26/22 00:07 08/26/22 00:30 Temperature 98 F 97.8 F Pulse Rate Pulse Rate [Pulse Oximeter] 78 82 82 Respiratory Rate 18 18 18 Blood Pressure [Le ft Arm] 131/81 130/76 Pulse Oximetry 98 98 [facility] 08/26/22 00:30 08/26/22 00:30 08/26/22 01:57 Temperature 97.8 F Pulse Rate 77 Pulse Rate [Pulse Oximeter] 82 Respiratory Rate 18 18 Blood Pressure [Le ft Arm] 130/76 Pulse Oximetry 98 98 [facility] Room [facility] 08/26/22 03:00 08/26/22 04:00 08/26/22 08:15 Temperature 97.8 F 97.8 F Pulse Rate Pulse Rate [Pulse Oximeter] 73 73 Respiratory Rate 18 18 18 Blood Pressure [Le ft Arm] 148/84 H 148/84 H Pulse Oximetry 98 98 96 [facility] Room Air Room Air 08/26/22 08:15 08/26/22 09:52 08/26/22 12:09 Temperature 98.0 F 98.4 F Pulse Rate Pulse Rate [Pulse Oximeter] 93 93 93 Respiratory Rate 18 18 16 Blood Pressure [Le ft Arm] 138/102 H 136/103 H Pulse Oximetry 98 98 Oxygen Delivery Me thod Room Air Room Air 08/26/22 13:00 Temperature 95.5 F L Pulse Rate Pulse Rate [Pulse Oximeter] 95 Respiratory Rate 17 Blood Pressure [Le ft Arm] 132/96 H Pulse Oximetry 98 Oxygen Delivery Me thod Room Air Labs Labs: Laboratory Results - last 24 hr 08/26/22 07:56 WBC 5.73 RBC 3.75 L Hgb 12.6 L Hct 37.1 MCV 99 MCH 34 MCHC 34 RDW Coeff of Nia 12.7 Plt Count 96 L Neut % (Auto) 65.1 Lymph % (Auto) 24.1 [place] % (Auto) 8.2 Eos % (Auto) 1.4 Baso % (Auto) 1.0 Neut # (Auto) 3.73 Lymph # (Auto) 1.38 [place] # (Auto) 0.50 Eos # (Auto) 0.08 Baso # (Auto) 0.06 Sodium 134 L Potassium 3.2 L Chloride 100 Carbon Dioxide 24 BUN 7 Creatinine 0.4 L Estimated Creat Clear 78.07 Estimated GFR 123 Glucose 76 Calcium 7.8 L Ionized Calcium Delmy 1.02 L Magnesium 1.2 L Total Bilirubin 1.9 H Direct Bilirubin 0.5 AST 85 H ALT 37 Alkaline Phosphatase 70 Troponin I 0.07 H* Total Protein 6.7 Albumin 3.3
[2022-08-26] MEDS: 0.9 % SODIUM CH + KCL 20 mEq/L 1,000 ML 150 ML IV (16:00)
[2022-08-26 19:18] LABS: Folate, Serum 4.9 ng/mL (>=5.9)
[2022-08-26] MEDS: MAGNESIUM OXIDE 400 MG TABLET PO (21:01)
[2022-08-26] MEDS: ATORVASTATIN 10 MG TABLET 20 MG PO (22:08)
[2022-08-26] MEDS: SACUBITRIL 24 mg/VALSARTAN 26 mg TABLET 1 TAB PO (22:08)
--- NOTE | 2022-08-26 22:13 | PC.NURSE ---
End of Shift: Pt somnolent throughout majority of shift. When pt is aroused, pt is unsure of surroundings, location, and unable to recognize his son. Meal ordered, pt had one bite of mashed potatoes. Pt remained in bed throughout shift with repositioning. No pain reported when able to answer. Family at bedside.
[2022-08-26] MEDS: ENOXAPARIN 30 MG/0.3ML INJ SUBCUT (22:58)
[2022-08-26] MEDS: THIAMINE 100 MG TABLET PO (22:58)
[2022-08-27] VITALS (10 sets, daily range): BP systolic 119–146; BP diastolic 73–91; PULSE 78–106; RESP 16–20; TEMP 36.4–36.9; O2SAT 99–100
[2022-08-27] MEDS: 0.9 % SODIUM CH + KCL 20 mEq/L 1,000 ML 150 ML IV ×3 (03:30→20:23)
--- NOTE | 2022-08-27 05:33 | PC.NURSE ---
END OF SHIFT NOTE: PT ASLEEP?MUCH OF SHIFT. PT UNABLE TO REPORT CP, SOB, N/V. UNABLE TO FOLLOW COMMANDS. PT ON BEDREST WITH REPOSITIONING Q2H & PRN. INCONTINENT OF URINE AND BM. VSS ON RA; AFEBRILE. SCORED 6 ON CIWA CHECKS.?BED ALARM ON AND CALL LIGHT WITHIN PT?S REACH. PT -BRIAN AT BEDSIDE.
[2022-08-27] MEDS: OMEPRAZOLE 20 MG CAPSULE DR 40 MG PO (06:22)
[2022-08-27 07:30] LABS: Ionized Calcium* 1.05 mmol/L (1.11-1.30)
[2022-08-27 07:35] LABS: Basophils Absolute Auto 0.04 K/uL (0.00-0.30); Basophils Percent Auto 0.6 % (0.0-3.0); Eosinophils Percent Auto 1.6 % (0.0-7.0); Hemoglobin* 13.6 gm/dL (13.5-17.5); Immature Granulocytes Abs Auto 0.01 K/uL (0.00-0.30); Immature Granulocytes Pct Auto 0.2 %; Lymphocytes Absolute Auto 1.33 K/uL (0.90-2.90); Lymphocytes Percent Auto 21.2 % (20-44); Mean Corpuscular HGB Conc 33 gm/dL (32-36); Mean Corpuscular Hemoglobin 33 pg (26-34); Mean Corpuscular Volume 101 fL (80-100); Neutrophils Percent Auto 68.4 % (42.0-72.0); Platelet Count* 118 K/uL (140-440); RDW Coefficient of Variation % 12.8 % (11.5-15.5); Red Blood Count 4.07 m/uL (4.30-5.90); White Blood Count* 6.28 K/uL (4.50-11.00)
[2022-08-27 07:40] LABS: Slide Review Reflex No
[2022-08-27 07:53] LABS: Albumin* 3.3 g/dL (3.3-5.0); Chloride* 101 mmol/L (96-114); Potassium* 4.4 mmol/L (3.6-5.1); Sodium* 132 mmol/L (135-149)
[2022-08-27 07:55] LABS: Aspartate Amino Transferase* 77 U/L (12-35); Bilirubin Direct* 0.3 mg/dL (0.0-0.5); Bilirubin Total* 1.5 mg/dL (0.1-1.5); Total Protein* 6.7 g/dL (6.0-8.3)
[2022-08-27 07:56] LABS: Alanine Aminotransferase* 36 U/L (4-50); Alkaline Phosphatase* 74 U/L (40-150); Carbon Dioxide* 20 mmol/L (20-32); Creatinine* 0.4 mg/dL (0.5-1.5); Est. Creatinine Clearance* 78.07; Estimated Glomerular Filt Rate 123 ml/min
[2022-08-27 07:57] LABS: Blood Urea Nitrogen* 4 mg/dL (7-30); Calcium* 7.9 mg/dL (8.4-10.6); Glucose* 81 mg/dL (60-115); Magnesium* 1.2 mg/dL (1.5-2.6)
[2022-08-27] MEDS: ASPIRIN 81 MG TABLET EC PO (08:16)
[2022-08-27] MEDS: MULTIVITAMIN/MINERALS 1 TABLET 1 TAB PO (08:16)
[2022-08-27] MEDS: FOLIC ACID 1 MG TABLET PO (08:16)
[2022-08-27] MEDS: CLOPIDOGREL 75 MG TABLET PO (08:17)
[2022-08-27] MEDS: METOPROLOL TARTRATE 25 MG TABLET 12.5 MG PO ×2 (08:17→20:24)
[2022-08-27] MEDS: MAGNESIUM OXIDE 400 MG TABLET PO ×2 (08:17→20:23)
[2022-08-27] MEDS: IBUPROFEN 400 MG TABLET PO ×3 (08:17→18:10)
[2022-08-27] MEDS: SACUBITRIL 24 mg/VALSARTAN 26 mg TABLET 1 TAB PO ×2 (08:19→20:25)
[2022-08-27] MEDS: POTASSIUM BICARB 25 MEQ EFFERVESCENT TAB PO ×2 (08:20→18:10)
[2022-08-27] MEDS: MAGNESIUM IV 2 GM/50 ML PIGGYBACK IVPB (09:20)
--- NOTE | 2022-08-27 10:36 | P.IMPN_ITS ---
Progress Note: A&P Assessment and plan (1) Syncope and collapse: Problem details: - ddx includes seizure episode with post seizure amnesia, possibly related to his prior CVA, NSTEMI or ETOH use/withdrawal - no recurrence, reassuring telemetry Status: Acute (2) Alcoholism: Problem details: - + withdrawal. Per family, last drink likely 08/23 in the afternoon - sequela including thrombocytopenia, macrocytosis, elevated AST, hypokalemia, hyponatremia, hypomagnesemia, hypocalcemia - Ativan initiated 08/24, Phenobarbital initiated 08/25 - continue to follow CIWA scores - abdominal ultrasound 08/27 to evaluate for cirrhosis Status: Acute (3) NSTEMI (non-ST elevated myocardial infarction): Problem details: - troponin peaked at 0.28, TTE 08/25 with results below (findings and history c/w ETOH cardiomyopathy): - reviewed findings with Dr. Gonzalez of Cardiology; given patient's asymptomatic state and down trending troponin, no need to initiate urgent transfer at this time, will medically manage: BB, statin, ASA, Entresto - will need close PCP and Cardiology f/u upon discharge Final Impressions: 1. Normal LV size, mildly increased wall thickness, moderately reduced global systolic function with an estimated EF of 30 - 35%. 2. Multiple segmental abnormalities exist. See findings. 3. Right ventricular cavity size is normal, global systolic RV function is normal. 4. The aortic valve is trileaflet and sclerotic, no stenosis and no regurgitation. 5. The ascending aorta is dilated with a maximal diameter of 3.9 cm. 6. Unable to estimate RVSP. Chamber Sizes and Function Normal left ventricular size, mildly increased wall thickness, moderately reduced global systolic function with an estimated EF of 30 - 35%. Left atrial size is normal. Right ventricular cavity size is normal, global systolic RV function is normal. The right atrium is normal. The pulmonary artery is of nor mal size and origin. The sinus of Valsalva is normal sized. The ascending aorta is dilated. The apical septum segment is akinetic. The inferior septum, entire inferior wall, mid anterior septum segment, mid posterior segment, apical lateral segment, and apical anterior segment are hypokinetic. All remaining scored segments are normal. Status: Acute (4) History of stroke: Problem details: - CT head 08/24/22: No acute abnormalities, moderate periventricular white matter hypodensities likely small vessel ischemic changes, old lacunar type infarct in the left posterior limb of the internal capsule Status: Acute Plan - per above (therapies, abdominal u/s, continued CIWAs) - will need close PCP f/u upon discharge to ensure sobriety and medication compliance - home with when medically stable - updated at bedside, questions answered Subjective Date Seen: 08/27/22 Interval history: Aung is more awake today, able to verbalize needs. Specifically denies chest pain or other concerns for hospitalist team. He is able to participate in therapies today. Exam Narrative: Exam Narrative: GEN: Awake and intermittently answering questions appropriately, some episodes of confusion HEENT: Normal external ears, EOMIs bilaterally, no scleral icterus CV: RRR, No concerning murmurs, rubs, or gallops R: LCTA bilaterally without concerning wheezing, rales, or rhonchi Ext: wwp, no concerning edema Skin: No concerning skin lesions or rashes on exposed skin Neuro: Intermittent Psych: Appropriate Const: Vital Signs, click to edit/add: Vital Signs - 24 hr 08/26/22 12:09 08/26/22 13:00 08/26/22 15:00 Temperature 98.4 F 95.5 F L Pulse Rate Pulse Rate [Pulse Oximeter] 93 95 100 Respiratory Rate 16 17 22 Blood Pressure [Le ft Arm] 136/103 H 132/96 H Pulse Oximetry 98 98 Oxygen Delivery Me thod Room Air Room Air 08/26/22 15:00 08/26/22 15:00 08/26/22 17:00 Temperature 96.6 F L 97 F L Pulse Rate Pulse Rate [Pulse Oximeter] 90 76 Respiratory Rate 18 18 16 Blood Pressure [Le ft Arm] 146/95 H 121/91 H Pulse Oximetry 100 100 96 Oxygen Delivery Me thod Room Air Room Air Room Air 08/26/22 19:00 08/26/22 21:00 08/26/22 23:55 Temperature 96.8 F L 96.8 F L Pulse Rate Pulse Rate [Pulse Oximeter] 76 94 85 Respiratory Rate 18 18 16 Blood Pressure [Le ft Arm] 123/80 137/92 H Pulse Oximetry 99 99 Oxygen Delivery Me thod Room Air Room Air 08/26/22 23:55 08/26/22 23:55 08/27/22 03:00 Temperature 97.8 F 97.9 F Pulse Rate Pulse Rate [Pulse Oximeter] 85 90 Respiratory Rate 16 16 16 Blood Pressure [Le ft Arm] 129/79 133/86 Pulse Oximetry 100 100 99 Oxygen Delivery Me thod Room Air Room Air Room Air 08/27/22 07:15 08/27/22 07:15 08/27/22 07:15 Temperature 98.1 F 98.1 F Pulse Rate Pulse Rate [Pulse Oximeter] 96 96 Respiratory Rate 16 16 16 Blood Pressure [Le ft Arm] 142/89 H 142/89 H Pulse Oximetry 100 100 100 Oxygen Delivery Me thod Room Air Room Air Room Air 08/27/22 07:20 08/27/22 07:46 Temperature Pulse Rate 106 H Pulse Rate [Pulse Oximeter] 96 Respiratory Rate 16 Blood Pressure [Le ft Arm] Pulse Oximetry Oxygen Delivery Me thod Labs Labs: Laboratory Results - last 24 hr 08/24/22 08/27/22 22:06 07:20 WBC 6.28 RBC 4.07 L Hgb 13.6 Hct 41.0 MCV 101 H MCH 33 MCHC 33 RDW Coeff of Nia 12.8 Plt Count 118 L Neut % (Auto) 68.4 Lymph % (Auto) 21.2 [place] % (Auto) 8.0 Eos % (Auto) 1.6 Baso % (Auto) 0.6 Neut # (Auto) 4.30 Lymph # (Auto) 1.33 [place] # (Auto) 0.50 Eos # (Auto) 0.10 Baso # (Auto) 0.04 Sodium 132 L Potassium 4.4 Chloride 101 Carbon Dioxide 20 BUN 4 L Creatinine 0.4 L Estimated Creat Clear 78.07 Estimated GFR 123 Glucose 81 Calcium 7.9 L Ionized Calcium Delmy 1.05 L Magnesium 1.2 L Total Bilirubin 1.5 Direct Bilirubin 0.3 AST 77 H ALT 36 Alkaline Phosphatase 74 Total Protein 6.7 Albumin 3.3 RBC Fol Christ for Serum 4.9 L
[2022-08-27] MEDS: THIAMINE 250 MG in 0.9 % SODIUM CHLORIDE 100 ml 100 ML 102.5 MG IVPB (14:10)
--- NOTE | 2022-08-27 14:36 | PC.NURSE ---
End of Shift:? pt has been restless and confused.? he is alert to self.?he could tell me he was in the hospital but he was not sure where he was. he was sleeping 10-1230. lindsay in the room and is very loving and caring. ? he is still restive with cares.? but he is more awake and cooperative today. Ciwas done he was a 3-6 and no Ativan or phenobarbital.? IV has been patent.? his helped him with breakfast he was able to use the fork but not able to stab the food with the fork. npo for lunch. US of abd @ 1430. ? he is not able to use call light. ? alarms are on. ? he is a fall risk. ? PT and OT where he to work with him and tried to help him with cares. teds are on and off. tele is on and he is Sinus Tachycardia he has kept the tell on. he is a heavy 2 assist to chair and BSC. he does not stand good. transfer belt and walker used. he was incontinent of Bowel and bladder. he thinks he is walking fine with no problems see OT and PT notes. he is asking for clothes to go home I have told him many times that he is not safe to go home and he disagrees with me. Echo is also ordered for today will ask about diet after US of abd.
--- NOTE | 2022-08-27 15:00 | CRLHL7_ITS ---
For Patients: As a result of the Century Cures Act, medical imaging exams and procedure reports are released immediately into your electronic medical record. You may view this report before your referring provider. If you have questions, please contact your health care provider. INDICATION: ETOH. Cirrhosis. TECHNIQUE: Ultrasound abdomen limited. Sonographic images of the right upper quadrant were obtained using navarro-scale and color Doppler images. COMPARISON: None. FINDINGS: Liver: Normal in size. Echogenic parenchyma suggesting fatty infiltration. No suspicious masses. No intrahepatic biliary dilatation. Portal vein is patent with blood flow toward the liver. Gallbladder: Multiple small stones suspected. Normal wall thickness. No pericholecystic fluid. Common bile duct: 10 mm. No ductal stone visualized. Pancreas: Unremarkable. Right kidney: Normal in size. Normal echotexture and cortex. No suspicious masses, stones, or hydronephrosis. Vasculature: Proximal abdominal aorta and IVC are unremarkable. IMPRESSION: 1. Hepatic steatosis. Otherwise unremarkable liver. No significant signs of cirrhosis. 2. Cholelithiasis. 3. Dilated common bile duct measuring 10 mm of uncertain significance. No ductal stone or mass is visualized. Dictated by Clyde Albarado MD @ 08/27/2022 3:48:34 PM (Electronically Signed)
--- NOTE | 2022-08-27 15:30 | PC.SOCIAL ---
Met with pt.'s spouse to discuss discharge plans. Pt. is currently requiring two staff to move and is adamant he is discharging home. Discussed [facility] for rehab and CD treatment or another SNF for rehab. Pt.'s spouse does not think pt. will agree to [facility] as he has never agreed to CD treatment. She is going to talk to their adult children chelsea to see what they recommend for discharge plans for pt. and if they could convince pt. to go to [facility] or another SNF. Pt. is aware that a SNF will be difficult to find for pt.
[2022-08-27] MEDS: ATORVASTATIN 10 MG TABLET 20 MG PO (20:24)
[2022-08-27] MEDS: ENOXAPARIN 30 MG/0.3ML INJ SUBCUT (23:12)
[2022-08-27] MEDS: LORazepam 1 MG TABLET PO (23:27)
[2022-08-28] VITALS (13 sets, daily range): BP systolic 116–151; BP diastolic 67–101; PULSE 82–101; RESP 16–20; TEMP 36.4–37.1; O2SAT 97–100
[2022-08-28] MEDS: 0.9 % SODIUM CH + KCL 20 mEq/L 1,000 ML 150 ML IV ×2 (02:23→10:47)
[2022-08-28 06:48] LABS: Ionized Calcium* 1.05 mmol/L (1.11-1.30)
[2022-08-28] MEDS: OMEPRAZOLE 20 MG CAPSULE DR 40 MG PO (06:53)
[2022-08-28 07:10] LABS: Basophils Absolute Auto 0.05 K/uL (0.00-0.30); Basophils Percent Auto 0.8 % (0.0-3.0); Eosinophils Percent Auto 1.6 % (0.0-7.0); Hematocrit 37.4 % (37.0-53.0); Hemoglobin* 12.3 gm/dL (13.5-17.5); Immature Granulocytes Abs Auto 0.02 K/uL (0.00-0.30); Immature Granulocytes Pct Auto 0.3 %; Lymphocytes Absolute Auto 1.62 K/uL (0.90-2.90); Lymphocytes Percent Auto 26.6 % (20-44); Mean Corpuscular HGB Conc 33 gm/dL (32-36); Mean Corpuscular Hemoglobin 34 pg (26-34); Mean Corpuscular Volume 102 fL (80-100); Monocytes Percent Auto 9.3 % (0.0-11.0); Neutrophils Absolute Auto 3.74 K/uL (1.7-7.0); Neutrophils Percent Auto 61.4 % (42.0-72.0); Platelet Count* 142 K/uL (140-440); RDW Coefficient of Variation % 13.2 % (11.5-15.5); Red Blood Count 3.66 m/uL (4.30-5.90)
[2022-08-28 07:19] LABS: Albumin* 3.2 g/dL (3.3-5.0); Chloride* 105 mmol/L (96-114); Potassium* 4.6 mmol/L (3.6-5.1); Slide Review Reflex No; Sodium* 136 mmol/L (135-149)
[2022-08-28 07:21] LABS: Bilirubin Total* 0.8 mg/dL (0.1-1.5); Carbon Dioxide* 25 mmol/L (20-32); Creatinine* 0.5 mg/dL (0.5-1.5); Est. Creatinine Clearance* 78.07; Estimated Glomerular Filt Rate 115 ml/min
[2022-08-28 07:22] LABS: Alanine Aminotransferase* 32 U/L (4-50); Alkaline Phosphatase* 95 U/L (40-150); Aspartate Amino Transferase* 54 U/L (12-35); Blood Urea Nitrogen* 9 mg/dL (7-30); Calcium* 7.9 mg/dL (8.4-10.6); Glucose* 106 mg/dL (60-115); Magnesium* 1.5 mg/dL (1.5-2.6); Total Protein* 6.6 g/dL (6.0-8.3)
--- NOTE | 2022-08-28 07:32 | PC.NURSE ---
Pt alert and oriented to self and place only. Afebrile. Pt denies chest pain, and N/V. Pt reported ?I don?t feel well? when asked if in pain the pt denies but reports ?my head hurts a little?, 2/10 pain, managed?with PRN medications. Pt is on CIWAs?scoring 9 during first assessment around 2320 08/27/22 a was confused asking ?How long have I been here?? and making statements ?I have to go to work, where are my clothes, get my clothes. I don?t want to be here anymore.? and attempts to get out of bed, pushing/shooing nurses away while simultaneously asking for help from his son to ?get out of this place to get to work?. Pt makes repetitive statements about work and concerns regarding work. Pt is aware he is in the hospital but stated ?it?s the year 1960? when asked about year, pt also frequently asks what day it is and when ask what day he says ?Wednesday.??Family is at bedside helping reorient pt. Pt was given PRN Adivan. After PRN?Adivan was given the next 3?CIWAs were taken every hour scoring between 3-5.?Pt was able to sleep intermittently throughout night. Pt is up with Ez stand. Pt is tolerating a regular diet. Pt is voiding, brief soaked x2, with one bed sheet change. ?
[2022-08-28] MEDS: POTASSIUM BICARB 25 MEQ EFFERVESCENT TAB PO ×2 (08:20→18:14)
[2022-08-28] MEDS: CLOPIDOGREL 75 MG TABLET PO (08:21)
[2022-08-28] MEDS: MAGNESIUM OXIDE 400 MG TABLET PO ×2 (08:21→21:19)
[2022-08-28] MEDS: FOLIC ACID 1 MG TABLET PO (08:21)
[2022-08-28] MEDS: METOPROLOL TARTRATE 25 MG TABLET 12.5 MG PO (08:22)
[2022-08-28] MEDS: MULTIVITAMIN/MINERALS 1 TABLET 1 TAB PO (08:22)
[2022-08-28] MEDS: IBUPROFEN 400 MG TABLET PO ×2 (08:22→18:14)
[2022-08-28] MEDS: ASPIRIN 81 MG TABLET EC PO (08:22)
[2022-08-28] MEDS: SACUBITRIL 24 mg/VALSARTAN 26 mg TABLET 1 TAB PO ×2 (08:24→21:19)
--- NOTE | 2022-08-28 08:51 | PM.IMPN1 ---
Progress Note: A&P Assessment and plan (1) Syncope and collapse: Problem details: - ddx includes seizure episode with post seizure amnesia, ETOH encephalopathy, possibly related to his prior CVA - no recurrence, reassuring telemetry Status: Acute (2) Alcoholism: Problem details: - + withdrawal. Per family, last drink likely 08/23 in the afternoon. On high dose Thiamine given concerns of encephalopathy - Ativan initiated 08/24, Phenobarbital 08/25-08/27 - sequela including thrombocytopenia, macrocytosis, elevated AST, hypokalemia, hyponatremia, hypomagnesemia, hypocalcemia - continue to follow CIWA scores - abdominal ultrasound 08/27: Fatty liver disease Status: Acute (3) NSTEMI (non-ST elevated myocardial infarction): Problem details: - troponin peaked at 0.28, TTE 08/25 with results below (findings and history c/w ETOH cardiomyopathy): - reviewed findings with Dr. Gonzalez of Cardiology; given patient's asymptomatic state and down trending troponin, no need to initiate urgent transfer at this time, will medically manage: BB, statin, ASA, Entresto. Tolerating these medications well with reassuring VS - will need close PCP and Cardiology f/u upon discharge Final Impressions: 1. Normal LV size, mildly increased wall thickness, moderately reduced global systolic function with an estimated EF of 30 - 35%. 2. Multiple segmental abnormalities exist. See findings. 3. Right ventricular cavity size is normal, global systolic RV function is normal. 4. The aortic valve is trileaflet and sclerotic, no stenosis and no regurgitation. 5. The ascending aorta is dilated with a maximal diameter of 3.9 cm. 6. Unable to estimate RVSP. Chamber Sizes and Function Normal left ventricular size, mildly increased wall thickness, moderately reduced global systolic function with an estimated EF of 30 - 35%. Left atrial size is normal. Right ventricular cavity size is normal, global systolic RV function is normal. The right atrium is normal. The pulmonary artery is of normal size and origin. The sinus of Valsalva is normal sized. The ascending aorta is dilated. The apical septum segment is akinetic. The inferior septum, entire inferior wall, mid anterior septum segment, mid posterior segment, apical lateral segment, and apical anterior segment are hypokinetic. All remaining scored segments are normal. Status: Acute (4) History of stroke: Problem details: - CT head 08/24/22: No acute abnormalities, moderate periventricular white matter hypodensities likely small vessel ischemic changes, old lacunar type infarct in the left posterior limb of the internal capsule Status: Acute Plan - per above - Lovenox for ppx - appreciate input from therapies and SW. When patient cleared by therapies, likely home with / family supervision and HH - and daughter updated at bedside, questions answered Subjective Date Seen: 08/28/22 Interval history: Aung continues to be more alert, eating breakfast and verbalizing needs. He has been off of Phenobarbital for >24 hours, only received one dose of Ativan overnight. He was unable to ambulate well with therapies yesterday, will likely require extra care upon discharge. notes that they have access to a handicapped accessible one level [facility] upon discharge with family members able to provide supervision. Home health care orders signed today. Exam Narrative: Exam Narrative: GEN: Sitting up in bedside chair and eating breakfast, moderately perseverative regarding discharge home HEENT: EOMIs bilaterally, no scleral icterus CV: RRR, No concerning murmurs R: LCTA bilaterally without concerning wheezing, air movement adequate Ext: wwp, no concerning edema Skin: Scattered bruising and abrasions of extremities, none with acute signs of infection Neuro: No resting tremor, no focal deficits, gait not observd Psych: Redirectable, no significant agitation Const: Vital Signs, click to edit/add: Vital Signs - 24 hr 08/27/22 13:08 08/27/22 15:00 08/27/22 15:00 Temperature 98.0 F Pulse Rate Pulse Rate [Pulse Oximeter] 78 88 Respiratory Rate 16 16 16 Blood Pressure [Le ft Arm] 135/87 Pulse Oximetry 99 100 Oxygen Delivery Me thod Room Air Room Air 08/27/22 15:00 08/27/22 15:00 08/27/22 17:00 Temperature 98.3 F 98.3 F Pulse Rate 90 Pulse Rate [Pulse Oximeter] 88 88 Respiratory Rate 16 16 Blood Pressure [Le ft Arm] 146/91 H 146/91 H Pulse Oximetry 100 100 Oxygen Delivery Me thod Room Air Room Air 08/27/22 19:00 08/27/22 19:00 08/27/22 23:00 Temperature 98.5 F 98.5 F Pulse Rate 81 Pulse Rate [Pulse Oximeter] 94 94 Respiratory Rate 20 20 Blood Pressure [Le ft Arm] 119/73 119/73 Pulse Oximetry 100 100 Oxygen Delivery Me thod Room Air Room Air 08/27/22 23:00 08/27/22 23:00 08/27/22 23:00 Temperature 97.6 F Pulse Rate Pulse Rate [Pulse Oximeter] 82 82 Respiratory Rate 20 20 20 Blood Pressure [Le ft Arm] 131/80 Pulse Oximetry 100 100 Oxygen Delivery Me thod Room Air Room Air 08/27/22 23:30 08/28/22 00:28 08/28/22 01:25 Temperature 97.6 F 97.9 F 98.2 F Pulse Rate Pulse Rate [Pulse Oximeter] 82 82 88 Respiratory Rate 20 20 18 Blood Pressure [Le ft Arm] 131/80 117/67 131/100 H Pulse Oximetry 100 97 98 Oxygen Delivery Me thod Room Air Room Air Room Air 08/28/22 02:25 08/28/22 02:30 08/28/22 05:05 Temperature 98.0 F 98.0 F 97.7 F Pulse Rate Pulse Rate [Pulse Oximeter] 82 82 86 Respiratory Rate 18 18 16 Blood Pressure [Le ft Arm] 116/73 116/73 143/87 H Pulse Oximetry 97 97 97 Oxygen Delivery Me thod Room Air Room Air Room Air 08/28/22 07:00 08/28/22 07:00 08/28/22 07:00 Temperature 97.9 F Pulse Rate Pulse Rate [Pulse Oximeter] 90 90 Respiratory Rate 20 20 Blood Pressure [Le ft Arm] 145/88 H Pulse Oximetry 99 99 Oxygen Delivery Me thod Room Air Room Air 08/28/22 07:00 Temperature Pulse Rate 101 H Pulse Rate [Pulse Oximeter] Respiratory Rate Blood Pressure [Le ft Arm] Pulse Oximetry Oxygen Delivery Me thod Labs Labs: Laboratory Results - last 24 hr 08/28/22 06:27 WBC 6.10 RBC 3.66 L Hgb 12.3 L Hct 37.4 MCV 102 H MCH 34 MCHC 33 RDW Coeff of Nia 13.2 Plt Count 142 Neut % (Auto) 61.4 Lymph % (Auto) 26.6 [place] % (Auto) 9.3 Eos % (Auto) 1.6 Baso % (Auto) 0.8 Neut # (Auto) 3.74 Lymph # (Auto) 1.62 [place] # (Auto) 0.60 Eos # (Auto) 0.10 Baso # (Auto) 0.05 Sodium 136 Potassium 4.6 Chloride 105 Carbon Dioxide 25 BUN 9 Creatinine 0.5 Estimated Creat Clear 78.07 Estimated GFR 115 Glucose 106 Calcium 7.9 L Ionized Calcium Delmy 1.05 L Magnesium 1.5 Total Bilirubin 0.8 AST 54 H ALT 32 Alkaline Phosphatase 95 Total Protein 6.6 Albumin 3.2 L
--- NOTE | 2022-08-28 12:30 | PC.NURSE ---
Addendum entered by Teresita Méndez RN 08/28/22 13:11: As of 1309 patient is now sleeping in his bed. He has had a lot of activity today. As he was waiting for PT & OT to work with him he did work on doing some sitting exercises in the chair. Will let him sleep his daughter is at bedside. Original Note: End of Shift Note: Patient has been alert and orientated so far for my shift. He has answered all my questions appropriately. He really wants to go home and have explained to him that he needs to be a lot stronger before he can make it home. He can not stand up on his own right now. He did work with PT today and did better than he did yesterday so hopefully with each passing day he will get a little better. CIWA was discontinued today as he appears to be pass withdrawal. He has a very supportive family. Will continue to monitor until shift change and if there is anything to update will write more.
[2022-08-28 12:32] LABS: Lab Add On Test New Spec Needed
--- NOTE | 2022-08-28 16:08 | PC.SOCIAL ---
Addendum entered by CLEVELAND Farrell 08/28/22 17:13: Received a phone call from [facility] they are unable to accept pt due to insurance. Phone calls to the following home care agencies. 1. [facility] at [phone]. Referral was faxed to [phone] They are reviewing. 2. [facility]- No availability. 3. [facility]- Confirmed that this agency does not accept pt's insurance. 4. [facility]- No availability. 5. [facility]- Left a voicemail inquiring on availability. Original Note: Pt is in need of home health care. Pt will discharge to a different address where the home accommodations are all on one level. The address is [address] [place] [address]. [address] [place]. [address]. Pt will need nursing, PT, and OT. Phone call to [facility] at [phone]. They would like referral faxed to review. Faxed referral to [facility] at [phone]. Social work will follow up as necessary.
[2022-08-28] MEDS: ACETAMINOPHEN 325 MG TABLET 650 MG PO ×2 (16:33→23:12)
--- NOTE | 2022-08-28 16:57 | PC.NURSE ---
Pt up to walk in his room with maximum 2 assist to door and back. Reinforced need for patient to rest prior to dinner. Rested aromatherapy patch placed. Pt given tylenol 650 mg PO for left shoulder pain, repositioned with pillows. Pt states I want to go home so I need to walk, dtr CC present in room. Pt needs reoriented, he thought it was 0400 am, not 4 PM. Dinner tray set up for Aung. Continue plan of care. BP elevate 151/101, new order for metoprolol ordered for HS.
--- NOTE | 2022-08-28 18:07 | PC.NURSE ---
Pt fell asleep after tolerating 75% of his dinner. Plan scheduled motrin and potassium when he wakes up. Continue plan of care.
[2022-08-28] MEDS: METOPROLOL TARTRATE 25 MG TABLET PO (21:19)
[2022-08-28] MEDS: ATORVASTATIN 10 MG TABLET 20 MG PO (21:20)
[2022-08-28] MEDS: OXYCODONE 5 MG TABLET 2.5 MG PO (21:33)
--- NOTE | 2022-08-28 22:17 | PC.NURSE ---
: Patient agitated at start and end of shift , wanting to get up and walk in hallway. Patient unable to safely stand at bedside w/staff x2, belt and walker, and unable to safely follow directions at these times. Wet briefs x2, voided onto floor on one occasion. Eventually able to be redirected by staff. Family at bedside, helpful w/redirection of patient. Confusion about why needing to be here, as well as what happened to him. Reported pain in shoulders and legs, 7-10/15. Ibuprofen and acetaminophen not helpful per patient. Oxycodone 2.5mg ordered by Dr. Field, administered to patient. Metoprolol tartrate 25mg initiated at med pass. BP 127/81 at 1900. Report to BASSAM Ortiz.
[2022-08-28] MEDS: ENOXAPARIN 30 MG/0.3ML INJ SUBCUT (23:09)
[2022-08-29] VITALS (8 sets, daily range): BP systolic 125–154; BP diastolic 75–104; PULSE 85–114; RESP 16–20; TEMP 36.3–37.2; O2SAT 95–100
[2022-08-29] MEDS: OXYCODONE 5 MG TABLET 2.5 MG PO (01:42)
[2022-08-29] MEDS: 0.9 % SODIUM CH + KCL 20 mEq/L 1,000 ML 150 ML IV (04:18)
--- NOTE | 2022-08-29 06:50 | PC.NURSE ---
Pt slept on/off thru the night waking to quickly sit up at bedside to use urinal. Pt remains incontinent due to urgency and frequency. Pt is agitated with still being in hospital and insists on going home. Pt's , Larissa, slept in room to aid in deescalation and spontaneity. Pt stood with designer writer, walker, and gait belt for urinal use, HS cares, and bedding change x2. Pt is wanting to walk in the halls to prepare to go home. Pt still needing reminders of safety, call light, and situation.
[2022-08-29 08:12] LABS: Ionized Calcium* 1.11 mmol/L (1.11-1.30)
[2022-08-29 08:22] LABS: Basophils Absolute Auto 0.06 K/uL (0.00-0.30); Basophils Percent Auto 1.1 % (0.0-3.0); Eosinophils Absolute Auto 0.09 K/uL (0.00-0.50); Eosinophils Percent Auto 1.6 % (0.0-7.0); Hemoglobin* 11.3 gm/dL (13.5-17.5); Immature Granulocytes Abs Auto 0.01 K/uL (0.00-0.30); Immature Granulocytes Pct Auto 0.2 %; Lymphocytes Absolute Auto 1.42 K/uL (0.90-2.90); Mean Corpuscular HGB Conc 33 gm/dL (32-36); Mean Corpuscular Hemoglobin 35 pg (26-34); Mean Corpuscular Volume 104 fL (80-100); Monocytes Percent Auto 10.8 % (0.0-11.0); Neutrophils Absolute Auto 3.48 K/uL (1.7-7.0); Neutrophils Percent Auto 61.3 % (42.0-72.0); Platelet Count* 121 K/uL (140-440); RDW Coefficient of Variation % 13.5 % (11.5-15.5); Red Blood Count 3.27 m/uL (4.30-5.90); White Blood Count* 5.67 K/uL (4.50-11.00)
[2022-08-29 08:27] LABS: Slide Review Reflex No
[2022-08-29 08:39] LABS: Albumin* 3.3 g/dL (3.3-5.0); Chloride* 103 mmol/L (96-114)
[2022-08-29 08:40] LABS: Potassium* 5.8 mmol/L (3.6-5.1); Sodium* 132 mmol/L (135-149)
[2022-08-29 08:42] LABS: Alkaline Phosphatase* 66 U/L (40-150); Aspartate Amino Transferase* 78 U/L (12-35); Bilirubin Total* 0.8 mg/dL (0.1-1.5); Blood Urea Nitrogen* 8 mg/dL (7-30); Carbon Dioxide* 24 mmol/L (20-32); Creatinine* 0.5 mg/dL (0.5-1.5); Est. Creatinine Clearance* 78.07; Estimated Glomerular Filt Rate 115 ml/min; Total Protein* 6.6 g/dL (6.0-8.3)
[2022-08-29 08:43] LABS: Alanine Aminotransferase* 38 U/L (4-50); Calcium* 8.4 mg/dL (8.4-10.6); Glucose* 98 mg/dL (60-115); Magnesium* 1.3 mg/dL (1.5-2.6)
[2022-08-29] MEDS: ACETAMINOPHEN 325 MG TABLET 650 MG PO (09:48)
[2022-08-29] MEDS: MAGNESIUM OXIDE 400 MG TABLET PO ×2 (09:51→20:43)
[2022-08-29] MEDS: METOPROLOL SUCCINATE (XL) 50 MG TAB PO ×2 (09:51→20:43)
[2022-08-29] MEDS: FOLIC ACID 1 MG TABLET PO (09:51)
[2022-08-29] MEDS: MULTIVITAMIN/MINERALS 1 TABLET 1 TAB PO (09:52)
[2022-08-29] MEDS: SACUBITRIL 24 mg/VALSARTAN 26 mg TABLET 1 TAB PO ×2 (09:52→20:43)
[2022-08-29] MEDS: ASPIRIN 81 MG TABLET EC PO (09:53)
[2022-08-29] MEDS: POTASSIUM BICARB 25 MEQ EFFERVESCENT TAB PO (09:53)
[2022-08-29] MEDS: OMEPRAZOLE 20 MG CAPSULE DR 40 MG PO (10:45)
[2022-08-29] MEDS: THIAMINE 100 MG TABLET 300 MG PO ×2 (10:45→20:43)
[2022-08-29] MEDS: METOPROLOL TARTRATE 25 MG TABLET PO (10:48)
--- NOTE | 2022-08-29 15:16 | P.IMPN_ITS ---
Progress Note: A&P Assessment and plan (1) Syncope and collapse: Problem details: Cause is uncertain. Concern about cardiac causes. No evidence of ongoing ischemia, dysrhythmia. Heart failure control much better. Concern about alcohol abuse and intoxication. Discussed in detail with patient and need for abstinence and likely need for assistance with abstinence Status: Acute (2) Alcoholism: Problem details: - + withdrawal. Per family, last drink likely 08/23 in the afternoon. 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 Gonzalez of Cardiology; given patient's as ymptomatic state and down trending troponin, no need to initiate urgent transfer at this time, will medically manage: BB, statin, ASA, Entresto. Tolerating these medications well with reassuring VS - will need close PCP and Cardiology f/u upon discharge Final Impressions: 1. Normal LV size, mildly increased wall thickness, moderately reduced global systolic function with an estimated EF of 30 - 35%. 2. Multiple segmental abnormalities exist. See findings. 3. Right ventricular cavity size is normal, global systolic RV function is normal. 4. The aortic valve is trileaflet and sclerotic, no stenosis and no regurgitation. 5. The ascending aorta is dilated with a maximal diameter of 3.9 cm. 6. Unable to estimate RVSP. Chamber Sizes and Function Normal left ventricular size, mildly increased wall thickness, moderately reduced global systolic function with an estimated EF of 30 - 35%. Left atrial size is normal. Right ventricular cavity size is normal, global systolic RV function is normal. The right atrium is normal. The pulmonary artery is of normal size and origin. The sinus of Valsalva is normal sized. The ascending aorta is dilated. The apical septum segment is akinetic. The inferior septum, entire inferior wall, mid anterior septum segment, mid posterior segment, apical lateral segment, and apical anterior segment are hypokinetic. All remaining scored segments are normal. Status: Acute (4) History of stroke: Problem details: - CT head 08/24/22: No acute abnormalities, moderate periventricular white matter hypodensities likely small vessel ischemic changes, old lacunar type infarct in the left posterior limb of the internal capsule Status: Acute (5) Peripheral neuropathy: Problem details: Appears to have peripheral neuropathy, probably related to alcohol abuse. Status: Acute (6) Electrolyte abnormality: Problem details: - hyponatremia, hypokalemia, hypocalcemia, hypomagnesemia, likely all related to poor nutrition in the setting of ETOH abuse - replace and follow Status: Acute (7) HFrEF (heart failure with reduced ejection fraction): Problem details: 08/24/22 echo shows LVEF 30-35% Status: Acute (8) Unstable gait: Problem details: Chronic. Status: Acute (9) Tobacco dependence: Status: Acute (10) Thrombocytopenia: Problem details: - likely a complication of his chronic alcohol use Status: Acute Plan Continue in hospital another day to see if he can become more independent with ambulation and ADLs. Will transition from IV medications and IV fluids to oral medications and fluids. Possible discharge to home with doing well. Family will need to give a fairly high level of supervision for his safety, medication use, alcohol abuse. Time Spent With Patient Total time spent: Total time spent today is 50 minutes, 30 minutes in coordination care discussing with patient, and other providers management of heart failure, alcohol abuse and discharge planning Subjective Date Seen: 08/29/22 Interval history: 62-year-old male admitted to the hospital after collapsing at work. Subsequent evaluation and treatment involves a number of problems noted below. Heart failure: Patient is found to have heart failure with reduced ejection fraction. He has not had any significant dysrhythmia. He has been started on guideline directed medical therapy for his heart disease. Heart disease may be related to alcohol abuse versus coronary artery disease. Non STEMI. Patient had elevated troponin without significant EKG changes or chest pain. Has remained asymptomatic with regard to cardiovascular symptoms. Alcohol withdrawal. Patient had moderately severe alcohol withdrawal early in his hospital stay. This is much improved over the last couple days. He was tr eated with phenobarbital and lorazepam. Electrolyte abnormalities including hypo magnesemia are being corrected. Today patient reports being anxious to leave. He would like to return to work. He reports no concerns today. He reports feeling fine. He has been evaluated by therapy who were concerned about his impulsiveness and safety with ambulation. Also concerned about his judgment. Exam Narrative: Exam Narrative: He is alert and appears in no distress. He is relatively animated and talkative. Speech is normal. Eyes normal. Conjugate gaze. Oropharynx normal. He has mild ataxia with eecguf-tsuf-cguegh movements. Dupuytren's contractions on both hands noted. Respirations are clear to auscultation. Cardiovascular: S1, S2, regular rate and rhythm. Abdomen is soft without tenderness or mass extremities without edema. Const: Vital Signs, click to edit/add: Vital Signs - 24 hr 08/28/22 15:35 08/28/22 15:35 08/28/22 19:24 Temperature 97.5 F L Pulse Rate Pulse Rate [Left A pical] 99 97 Pulse Rate [Pulse Oximeter] 99 97 Respiratory Rate 18 19 Blood Pressure [Le ft Arm] 151/101 H Blood Pressure [Ri ght Arm] Pulse Oximetry 99 99 Oxygen Delivery Mo thod Room Air Room Air 08/28/22 19:30 08/28/22 23:00 08/28/22 23:00 Temperature 98.7 F Pulse Rate 91 Pulse Rate [Left A pical] 97 Pulse Rate [Pulse Oximeter] 97 Respiratory Rate 19 20 Blood Pressure [Le ft Arm] 127/81 Blood Pressure [Ri ght Arm] Pulse Oximetry 97 98 [facility] Room Air 08/28/22 23:00 08/29/22 04:14 08/29/22 08:29 Temperature 97.9 F 98.5 F Pulse Rate 114 H Pulse Rate [Left A pical] Pulse Rate [Pulse Oximeter] 83 90 Respiratory Rate 20 20 Blood Pressure [Le ft Arm] 139/87 149/96 H Blood Pressure [Ri ght Arm] Pulse Oximetry 98 96 [facility]xygen [facility] Room Air 08/29/22 08:29 08/29/22 08:29 08/29/22 11:00 Temperature 98.9 F 97.3 F L Pulse Rate Pulse Rate [Left A pical] 101 H 91 Pulse Rate [Pulse Oximeter] 101 H 91 Respiratory Rate 18 18 16 Blood Pressure [Le ft Arm] Blood Pressure [Ri ght Arm] 154/104 H 135/92 H Pulse Oximetry 95 95 97 Oxygen Delivery Me thod Room Air Room Air Room Air Documenting provider has reviewed patient's vital signs: yes Labs Labs: Laboratory Results - last 24 hr 08/29/22 07:13 WBC 5.67 RBC 3.27 L Hgb 11.3 L Hct 34.0 L MCV 104 H MCH 35 H MCHC 33 RDW Coeff of Nia 13.5 Plt Count 121 L Neut % (Auto) 61.3 Lymph % (Auto) 25.0 [place] % (Auto) 10.8 Eos % (Auto) 1.6 Baso % (Auto) 1.1 Neut # (Auto) 3.48 Lymph # (Auto) 1.42 [place] # (Auto) 0.60 Eos # (Auto) 0.09 Baso # (Auto) 0.06 Sodium 132 L Potassium 5.8 H Chloride 103 Carbon Dioxide 24 BUN 8 Creatinine 0.5 Estimated Creat Clear 78.07 Estimated GFR 115 Glucose 98 Calcium 8.4 Ionized Calcium Delmy 1.11 Magnesium 1.3 L Total Bilirubin 0.8 AST 78 H ALT 38 Alkaline Phosphatase 66 Total Protein 6.6 Albumin 3.3
--- NOTE | 2022-08-29 15:37 | PC.NURSE ---
Pt eval by OT, PT and Dr. Rosales this am. No dysphagia with meds. Tele sinus tachycardia, HR decreased to 91 post po metoprolol. Larissa present twice during the shift. Son Filiberto sitting at bedside this afternoon. Pt upset that he couldn't go home and be part of the wedding out at the [employer] today. Reinforced need for him to have increased stamina and strength to avoid falling again at work. Pt continues to be impulsive when he wants to get up on his own. Bed/chair alarms engaged for safety. Hourly safety checks. Pt is distractible and needs reinforcement of his plan of care. Sometimes he is stubborn and refuses to follow simple instructions. Report to oncoming shift RN Benita.
[2022-08-29] MEDS: MAGNESIUM IV 2 GM/50 ML PIGGYBACK IVPB (16:44)
[2022-08-29] MEDS: 0.9 % SODIUM CHLORIDE 250 ml IV (16:45)
[2022-08-29] MEDS: SODIUM CHLORIDE 0.9 % (FLUSH) 10 ML SYRINGE 5 ML IVF (20:42)
[2022-08-29] MEDS: ATORVASTATIN 10 MG TABLET 20 MG PO (20:43)
[2022-08-30 02:07] VITALS: BP 136/87; PULSE 80; RESP 20; TEMP 37.1; O2SAT 98
[2022-08-30] MEDS: OXYCODONE 5 MG TABLET 2.5 MG PO (02:12)
--- NOTE | 2022-08-30 04:45 | PC.NURSE ---
[id number]: Patient mostly cooperative with cares and displays appropriate behavior during shift. At beginning of shift patient adamant about going home tonight. On several occasions resume writer explained that patient would be spending the night in the hospital and the doctor would reevaluate in the morning, which the patient eventually accepted. Patient is impulsive, sets off bed/chair alarms, and is up every 30-45 minutes during entire shift. At times the patient is orientated to situation and at other times confused and wanting to go out for a smoke, or looking for my fridge to get a drink. SBA w/walker. Patient walked halls x3 and tolerates well. Patient values independence and refuses assistance with personal cares stating it's embarrassing to have help. PRN Oxycodone x1 for L. shoulder pain.
[2022-08-30] MEDS: OMEPRAZOLE 20 MG CAPSULE DR 40 MG PO (05:56)
[2022-08-30 07:00] VITALS: BP 141/87; PULSE 99; RESP 20; TEMP 37.1; O2SAT 98
[2022-08-30 07:09] LABS: Chloride* 100 mmol/L (96-114); Sodium* 132 mmol/L (135-149)
[2022-08-30 07:10] LABS: Potassium* 4.8 mmol/L (3.6-5.1)
[2022-08-30 07:12] LABS: Carbon Dioxide* 25 mmol/L (20-32); Creatinine* 0.5 mg/dL (0.5-1.5); Est. Creatinine Clearance* 69.22; Estimated Glomerular Filt Rate 115 ml/min
[2022-08-30 07:13] LABS: Blood Urea Nitrogen* 7 mg/dL (7-30); Calcium* 8.9 mg/dL (8.4-10.6); Glucose* 98 mg/dL (60-115); Magnesium* 1.7 mg/dL (1.5-2.6)
[2022-08-30] MEDS: MAGNESIUM OXIDE 400 MG TABLET PO (09:09)
[2022-08-30] MEDS: THIAMINE 100 MG TABLET 300 MG PO (09:09)
[2022-08-30] MEDS: FOLIC ACID 1 MG TABLET PO (09:09)
[2022-08-30] MEDS: METOPROLOL SUCCINATE (XL) 50 MG TAB PO (09:09)
[2022-08-30] MEDS: MULTIVITAMIN/MINERALS 1 TABLET 1 TAB PO (09:09)
[2022-08-30] MEDS: ASPIRIN 81 MG TABLET EC PO (09:09)
[2022-08-30] MEDS: SACUBITRIL 24 mg/VALSARTAN 26 mg TABLET 1 TAB PO (09:10)
--- NOTE | 2022-08-30 10:51 | PC.NURSE ---
Discharge: Patient very anxious to leave. Alert and Oriented to self. Spouse at bedside. IV removed intact. Discharged at 0950 accompanied by spouse. Discharge instructions given. Spouse verbalized understanding of discharge parameters. Discharge sheet signed by spouse. Belongings sheet signed by Spouse
--- NOTE | 2022-08-30 11:50 | PM.DS1 ---
DS: Providers Provider Date Seen: 08/30/22 Date of admission: 08/24/22 21:30 Primary care physician: Not a Local Provider Admitting Clinician: Adonay Field MD Attending Physician on discharge: Sreedhar Rosales MD Date of Discharge: 08/30/22 DS: Diagnosis Discharge Diagnosis (1) Syncope and collapse: Status: Acute Problem details: Chief complaint on admission. Cause is uncertain. Evaluation has shown multiple comorbid medical problems listed below that may be contributing. No recurrent problems with syncope during hospital stay. (2) NSTEMI (non-ST elevated myocardial infarction): Status: Acute Problem details: - troponin peaked at 0.28, TTE 08/25 with results below (findings and history c/w ETOH cardiomyopathy): - reviewed findings with Dr. Gonzalez of Cardiology; given patient's asymptomatic state and down trending troponin, no need to initiate urgent transfer at this time, will medically manage: BB, statin, ASA, Entresto. Tolerating these medications well with reassuring VS - will need close PCP and Cardiology f/u upon discharge Final Impressions: 1. Normal LV size, mildly increased wall thickness, moderately reduced global systolic function with an estimated EF of 30 - 35%. 2. Multiple segmental abnormalities exist. See findings. 3. Right ventricular cavity size is normal, global systolic RV function is normal. 4. The aortic valve is trileaflet and sclerotic, no stenosis and no regurgitation. 5. The ascending aorta is dilated with a maximal diameter of 3.9 cm. 6. Unable to estimate RVSP. Chamber Sizes and Function Normal left ventricular size, mildly increased wall thickness, moderately reduced global systolic function with an estimated EF of 30 - 35%. Left atrial size is normal. Right ventricular cavity size is normal, global systolic RV function is normal. The right atrium is normal. The pulmonary artery is of normal size and origin. The sinus of Valsalva is normal sized. The ascending aorta is dilated. The apical septum segment is akinetic. The inferior septum, entire inferior wall, mid anterior septum segment, mid posterior segment, apical lateral segment, and apical anterior segment are hypokinetic. All remaining scored segments are normal. (3) Alcohol withdrawal delirium: Status: Acute Problem details: Patient had moderately severe alcohol withdrawal delirium. Managed with phenobarbital and lorazepam. Now back to baseline. (4) HFrEF (heart failure with reduced ejection fraction): Status: Acute Problem details: 08/24/22 echo shows LVEF 30-35%. Started on Entresto and rate control with metoprolol (5) Alcoholism: Status: Acute Problem details: Longstanding history of heavy drinking. Multiple complications identified including concern for Wernicke-Korsakoff, alcohol related cardiomyopathy, alcohol-related fatty liver, peripheral neuropathy, multiple electrolyte abnormalities, thrombocytopenia. (6) Cognitive and neurobehavioral dysfunction: Status: Acute Problem details: Patient exhibits impaired memory, impulsiveness. 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 Consider reassessment after a period of sobriety. (7) Electrolyte abnormality: Status: Acute Problem details: - hyponatremia, hypokalemia, hypocalcemia, hypomagnesemia, likely all related to poor nutrition in the setting of ETOH abuse - replace and follow (8) Thrombocytopenia: Status: Acute Problem details: - likely a complication of his chronic alcohol use (9) History of stroke: Status: Acute Problem details: - CT head 08/24/22: No acute abnormalities, moderate periventricular white matter hypodensities likely small vessel ischemic changes, old lacunar type infarct in the left posterior limb of the internal capsule (10) Tobacco dependence: Status: Acute (11) Unstable gait: Status: Acute Problem details: Chronic. Recommend use of a walker. Patient is quite impulsive and would benefit from supervision. DS: Summary Hospital Course Hospital Course: [place] is a 62 year old man who reportedly was in his usual state of health until he collapsed this afternoon while at work.? Most information that I relate below is obtained by speaking with the patient's and their son, both of whom are present when I see the patient in the emergency department this evening. The patient has intentionally avoided interaction with medical personnel over the years.? His physician retired early on during the COVID pandemic roughly 3 years ago.? Before his physician retired he rarely ever saw his physician.? He has not reestablished relationship with another physician since then.? His indicates that the patient suffered a stroke about 10 years ago and for a while was on statin medication, aspirin, and possibly another medicine.? When the patient decided to no longer seek medical attention after his physician retired, he quit taking all of his medications.? He has not been taking any prescription medications since then.? Family does note that he regularly takes [id number] ibuprofen, 4 tabs at a time, 3-4 times daily. 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 Reportedly he did not strike his head.? EMS was summoned.? According to the EMS report he was uncooperative with the EMS staff.? They thought they saw some facial drooping.? Found to have normal vital signs and glucose.? They placed an IV and attempted to give 1 mg of lorazepam.? Patient pulled out the IV possibly right after the lorazepam was given.? On arrival here to the emergency department there is no obvious focal motor neurologic deficits.? Still remains somewhat uncooperative with the nursing staff here in the hospital.? Subsequently fell asleep. During his hospital stay he had acute alcohol withdrawal delirium of moderate severity. This was managed with phenobarbital and lorazepam. This is now resolved. He was found to have multiple electrolytes including low potassium magnesium and sodium which were corrected. He was found to have heart failure with reduced ejection fraction. He had a mildly elevated troponin which was thought primarily due to heart failure rather than an acute coronary event. The heart failure was thought possibly related to chronic alcohol abuse/alcoholic cardiomyopathy. Patient is very anxious to go home. He appears to have some cognitive/behavioral issues making him forgetful and impulsive. This raises concerns about his ability to manage his own medications at home. Also risk concerns about his safety with ambulation. He is suspected to have peripheral neuropathy and is somewhat unsteady in his gait. These are also possibly related to his chronic alcohol use. He is recommended to use a walker. At discharge I emphasized the importance of abstinence from alcohol. He is to use a walker when he is walking. His indicates that he can live on 1 level in their home. If he does need to go up or down stairs he should have standby assistance. He is to take his medications as prescribed, supervised by his . She is agreeable to this plan. Status at Discharge Functional status at discharge: uses cane/walker Overall status at discharge: patient is progressing back to baseline Time Spent with Patient Time attestation: Total time spent providing and/or coordinating discharge services: Time spent: Greater than 30 minutes Exam Narrative: Exam Narrative: He is up ambulating without a walker holding onto the furniture. He does make use of the walker with my encouragement. He is able to walk relatively efficiently with a front wheeled walker. Respirations are clear to auscultation. Cardiovascular S1, S2, regular rate and rhythm. Abdomen is soft without tenderness or mass. Const: Vital Signs, click to edit/add: Vital Signs - 24 hr 08/29/22 15:00 08/29/22 16:08 08/29/22 18:33 Temperature 98.9 F 97.9 F Pulse Rate [Pulse Oximeter] 85 88 Respiratory Rate 20 20 18 Blood Pressure [Ri ght Arm] 131/83 125/75 Pulse Oximetry 100 100 99 Oxygen Delivery Me thod Room Air Room Air Room Air 08/29/22 22:32 08/29/22 23:00 08/30/22 02:07 Temperature 98.1 F 98.7 F Pulse Rate [Pulse Oximeter] 97 80 Respiratory Rate 20 20 20 Blood Pressure [Ri ght Arm] 139/84 136/87 Pulse Oximetry 97 97 98 Oxygen Delivery Me thod Room Air Room Air Room Air 08/30/22 07:00 08/30/22 07:00 08/30/22 07:00 Temperature 98.7 F Pulse Rate [Pulse Oximeter] 99 99 Respiratory Rate 20 20 20 Blood Pressure [Ri ght Arm] 141/87 H Pulse Oximetry 98 98 Oxygen Delivery Me thod Room Air Room Air Documenting provider has reviewed patient's vital signs: yes DS: Data Data Completed and Pending Labs on day of discharge: Labs from last 24 hours 08/30/22 06:17 Sodium 132 L Potassium 4.8 Chloride 100 Carbon Dioxide 25 BUN 7 Creatinine 0.5 Estimated Creat Clear 69.22 Estimated GFR 115 Glucose 98 Calcium 8.9 Magnesium 1.7 Discharge Plan Discharge Disposition: Home, Self-Care Date of Admission: 08/24/22 21:30 Attending Provider on Discharge: Real Rosales Primary Care Provider: Provider,Not a Local Condition: Improved Anticipated Discharge Date/Time: 08/30/22 09:30 Discharge Medications: New atorvastatin 10 mg Tablet 20 mg PO HS Qty: 30 0RF aspirin 81 mg Tablet,Delayed Release (Dr/Ec) 81 mg PO DAILY Qty: 30 0RF folic acid 1 mg Tablet 1 mg PO DAILY Qty: 30 0RF Entresto 24-26 mg Tablet 1 tab PO BID Qty: 60 0RF acetaminophen 325 mg Tablet 650 mg PO Q6H PRNQty: 100 0RF metoprolol succinate 50 mg Tablet Extended Release 24 Hr 50 mg PO BID Qty: 60 0RF sennosides-docusate sodium [Stool Softener-Laxative] 8.6-50 mg Tablet 1 tab PO DAILY PRNQty: 100 0RF multivitamin with folic acid [Thera] 400 mcg Tablet 1 tab PO DAILY Qty: 100 0RF magnesium 250 mg tablet 250 mg PO DAILY Qty: 90 0RF Discharge Orders: Discharge Order (Routine); Ordered 08/30/22 Ordered By: Real oRsales Patient Education: Metoprolol (By mouth), Acetaminophen (By mouth), Aspirin (By mouth), Folic Acid (By mouth), Laxative, Stool Softeners (By mouth), Multivitamins, Adult Formula (By mouth), Atorvastatin (By mouth), Magnesium Oxide (By mouth), Sacubitril/Valsartan (By mouth) (Entresto), Heart Failure (DC), Alcohol Use Disorder (DC) Additional Instructions: Your heart function is compromised, likely from alcohol use. If you can abstain from alcohol and take your medications as prescribed, you can improve your heart function and exercise tolerance. Many of the medicines I prescribed for you are to help your heart work better. I have referred you to Dr. Wiseman for a primary care physician. See him this week for recheck. Check your weight every day. If you gain 2 lb in 1 day or 3 lb in a week you should talk to your doctor to adjust your medication. Use a walker when you walk for safety. Activity Level: Activity as Tolerated and Use Walker Discharge Diet: Heart Healthy (2 gm sodium, low fat) Follow Up Appointments: Duy Wiseman MD [Staff Physician] - 09/03/22 9:45 am ([facility] for follow up. Lab tests at follow up appointment include basic metabolic panel and magnesium) Provider,Not a Local [Primary Care Provider] - (Please make an appt with Dr. Wiseman to establish care/hospital followup/Cardiology referral early next week.) Forms: [employer] Info Instructions
== END 2022-08-30 09:50 | disposition home or self-care (01) | DRG 896 ==
LOC: ED 20:23 → MEDSURG 21:07
PROVIDERS: Family Medicine; Admitting Provider Internal Medicine; Emergency Provider Emergency Medicine Emergency Medical Services; Visit Provider Internal Medicine
DX: F10.231 Alcohol dependence with withdrawal delirium (principal); I21.4 Non-ST elevation (NSTEMI) myocardial infarction; I50.21 Acute systolic (congestive) heart failure; E87.1 Hypo-osmolality and hyponatremia; I42.6 Alcoholic cardiomyopathy; F10.26 Alcohol dependence with alcohol-induced persisting amnestic disorder; R55 Syncope and collapse; R00.0 Tachycardia, unspecified; E87.6 Hypokalemia; G62.1 Alcoholic polyneuropathy; K70.0 Alcoholic fatty liver; I11.0 Hypertensive heart disease with heart failure; D69.6 Thrombocytopenia, unspecified; E83.51 Hypocalcemia; E83.42 Hypomagnesemia; D75.89 Other specified diseases of blood and blood-forming organs; R26.81 Unsteadiness on feet; Z86.73 Personal history of transient ischemic attack (TIA), and cerebral infarction without residual deficits; F17.210 Nicotine dependence, cigarettes, uncomplicated; G89.29 Other chronic pain; M25.559 Pain in unspecified hip; M25.569 Pain in unspecified knee
CPT/HCPCS: 36415; 70450; 76705; 80048; 80053; 80076; 80306; 81001; 82077; 82330; 82550; 82607; 82746; 83605; 83690; 83735; 84100; 84443; 84484; 85025; 85027; 85610; 87040; 93005; 93306; 94761; 97116; 97163; 97166; 97530; 97535; 99284; 99285; A9153; A9270; J0610; J1650; J2060; J2560; J3411; J3475; J3480; J7050; J7120

== ENCOUNTER 2022-09-03 10:11 | Outpatient (CLI) | payer MEDICAID, SELFPAY | END 2022-09-03 10:12 | disposition home or self-care (01) | PROVIDERS: Visit Provider Family Medicine | DX: Z00.00 Encounter for general adult medical examination without abnormal findings (principal); E87.8 Other disorders of electrolyte and fluid balance, not elsewhere classified; I50.20 Unspecified systolic (congestive) heart failure; G62.9 Polyneuropathy, unspecified; F10.20 Alcohol dependence, uncomplicated; R26.81 Unsteadiness on feet; F09 Unspecified mental disorder due to known physiological condition | CPT/HCPCS: 80061; 82607; 83735; 84153; 84443 ==